=== PATIENT | female | born 1980 | race Caucasian/White ===

== ENCOUNTER 2017-02-08 16:39 | Emergency (ER) | payer MEDICARE, MEDICAID ==
--- NOTE | 2017-02-08 19:41 | C.PDOC ---
History Of Present Illness Patient presents to the ER with a complaint of generalized body aches, abdominal pain, and vomiting for the past 4 days after eating pizza. Patient is able to tolerate PO, denies fever or chills. Time Seen by Provider: 02/08/17 19:40 Chief Complaint (Nursing): Abdominal Pain History Per: Patient History/Exam Limitations: no limitations Onset/Duration Of Symptoms: Days Current Symptoms Are (Timing): Still Present Location Of Pain/Discomfort: Epigastric Radiation Of Pain To:: None Quality Of Discomfort: Unable To Describe Associated Symptoms: Vomiting. denies: Fever, Chills Exacerbating Factors: None Alleviating Factors: None Recent travel outside of the [place]: No Past Medical History Reviewed: Historical Data, Nursing Documentation, Vital Signs Vital Signs: Last Vital Signs Temp 98.4 F 02/08/17 21:43 Pulse 72 02/08/17 21:43 Resp 20 02/08/17 21:43 BP 123/85 02/08/17 21:43 Pulse Ox 98 02/08/17 21:45 - Medical History PMH: Fibromyalgia, Migraine Surgical History: Appendectomy, Cholecystectomy - [facility] Procedures INJECT/INFUSE NEC (09/06/12) VACCINATION NEC (08/11/12) Family History: States: No Known Family Hx - Social History Hx Alcohol Use: No Hx Substance Use: No - Immunization History Hx Tetanus Toxoid Vaccination: No Hx Influenza Vaccination: Yes Hx Pneumococcal Vaccination: No Review Of Systems Constitutional: Negative for: Fever, Chills Gastrointestinal: Positive for: Vomiting, Abdominal Pain Musculoskeletal: Positive for: Other (Generalized body aches) Physical Exam - Physical Exam Appears: Non-toxic Skin: Warm, Dry Head: Normacephalic Oral Mucosa: Moist Chest: Symmetrical, No Tenderness Cardiovascular: Rhythm Regular Respiratory: No Rales, No Rhonchi, No Wheezing Gastrointestinal/Abdominal: Soft, Tenderness (Mild mid epigastric), No Guarding , No Rebound Neurological/Psych: Oriented x3 ED Course And Treatment - Laboratory Results Result Diagrams: 02/08/17 21:10 02/08/17 21:10 O2 Sat by Pulse Oximetry: 98 (Room air) Pulse Ox Interpretation: Normal Progress Note: Blood work and urinalysis ordered. Reglan and IV fluids administered. Reevaluation Time: 22:14 Reassessment Condition: Improved Disposition Counseled Patient/Family Regarding: Studies Performed, Diagnosis, Need For Followup, Rx Given - Disposition Referrals: [facility] at [facility] [Outside] [facility] [Outside] Disposition: HOME/ ROUTINE Disposition Time: 19:41 Condition: FAIR Additional Instructions: Please return if symptoms recur Prescriptions: Metoclopramide [Reglan] 1 tab PO TID PRN #25 tab PRN Reason: Nausea/Vomiting Pantoprazole Sodium [Protonix] 20 mg PO DAILY #15 ect Instructions: Abdominal Pain (ED) Forms: [employer] (Italian) - Clinical Impression Clinical Impression: Abdominal pain - Scribe Statement The provider has reviewed the documentation as recorded by the Scribe Cade Mcgill All medical record entries made by the Zahiraibe were at my direction and personally dictated by me. I have reviewed the chart and agree that the record accurately reflects my personal performance of the history, physical exam, medical decision making, and the department course for this patient. I have also personally directed, reviewed, and agree with the discharge instructions and disposition.
[2017-02-08] MEDS ORDERED: Sodium Chloride 0.9% 1,000 ML IV ONE (20:17)
[2017-02-08] MEDS ORDERED: Sodium Chloride 0.9% 1,000 ML ONE (21:04)
[2017-02-08 21:14] LABS: BASO % 0.3 % (0.0-2.0); EOS % 0.4 % (0.0-4.0); LYMPH # 1.7 K/uL (1.0-4.3); LYMPH % 31.7 % (20.0-40.0); MEAN CELL VOLUME 88.7 fL (81.0-99.0); MEAN CORPUSCULAR HEMOGLOBIN 29.6 pg (27.0-31.0); MEAN CORPUSCULAR HGB CONC 33.4 g/dL (33.0-37.0); MEAN PLATELET VOLUME 7.9 fL (7.2-11.7); MONO # 0.3 K/uL (0.0-0.8); MONO % 4.9 % (0.0-10.0); NEUT # 3.4 K/uL (1.8-7.0); NEUT % 62.7 % (50.0-75.0); NRBC % 0.1 % (0.0-2.0); RBC 4.39 Mil/uL (3.80-5.20); RED CELL DISTRIBUTION WIDTH 14.2 % (11.5-14.5); WHITE BLOOD COUNT 5.4 K/uL (4.8-10.8)
[2017-02-08 21:21] LABS: HCG,QUALITATIVE URINE NEGATIVE (NEGATIVE)
[2017-02-08 21:24] LABS: SQUAMOUS EPITHIAL 17 /hpf (0-5); URINE BACTERIA RARE (<OCC); URINE BILIRUBIN NEGATIVE (NEGATIVE); URINE BLOOD NEGATIVE (NEGATIVE); URINE CALCIUM OXALATE CRYSTALS FEW /hpf (<OCC); URINE CLARITY Clear (Clear); URINE GLUCOSE (UA) NORMAL (Normal); URINE LEUKOCYTE ESTERASE NEG Leu/uL (Negative); URINE NITRATE NEGATIVE (NEGATIVE); URINE PROTEIN 1+ mg/dL (NEGATIVE); URINE UROBILINOGEN NORMAL mg/dL (0.2-1.0)
[2017-02-08 21:25] LABS: CALCIUM 8.6 mg/dl (8.6-10.4); GFR AFRICAN-AMERICAN > 60; GFR NON-AFRICAN AMERICAN > 60; INR 1.1; LIPASE 69 U/L (23-300)
[2017-02-08 21:26] LABS: ALBUMIN 4.2 g/dL (3.5-5.0); ALT/SGPT 22 U/L (9-52); AST/SGOT 33 U/L (14-36); BLOOD UREA NITROGEN 5 mg/dL (7-17)
[2017-02-08 21:35] LABS: URINE COLOR YELLOW (YELLOW)
[2017-02-08 21:44] VITALS: BP 123/85; PULSE 72; RESP 20; TEMP 98.4; O2SAT 98
== END 2017-02-08 22:20 | disposition home or self-care (01) ==
LOC: C.ER 16:39
DX: R10.13 Epigastric pain (principal)
CPT/HCPCS: 80053; 81001; 83690; 84703; 85025; 85610; 85730; 96361; 96374; 99285; J2765; J7040

== ENCOUNTER 2017-06-07 14:46 | Emergency (ER) | payer MEDICARE, MEDICAID ==
[2017-06-07 14:51] VITALS: BMI 25.8
[2017-06-07 14:52] VITALS: RESP 18; TEMP 98.1
[2017-06-07 16:09] VITALS: BP 120/74; PULSE 80; O2SAT 100
--- NOTE | 2017-06-07 16:51 | C.PDOC ---
History Of Present Illness 36 y/o female, with history of fibromyalgia and remote history of seizures, present to the ER for evaluation after she had a seizure. Patient states that she had a seizure with tonic-clonic activity which lasted for several minutes. Patient reports that she returned to her baseline. She notes that she has a mild headache. Denies having fever and other complaints. Of note, patient is AOX3. Time Seen by Provider: 06/07/17 15:39 Chief Complaint (Nursing): Seizure History Per: Patient History/Exam Limitations: no limitations Severity: Moderate Past Medical History Reviewed: Historical Data, Nursing Documentation, Vital Signs Vital Signs: Last Vital Signs Temp 98.1 F 06/07/17 16:08 Pulse 80 06/07/17 16:08 Resp 18 06/07/17 16:08 BP 120/74 06/07/17 16:08 Pulse Ox 100 06/07/17 16:55 - Medical History PMH: Anxiety, Depression, Fibromyalgia, Migraine, Seizures Surgical History: Appendectomy, Cholecystectomy - [facility] Procedures INJECT/INFUSE NEC (09/06/12) VACCINATION NEC (08/11/12) Family History: States: No Known Family Hx - Social History Hx Alcohol Use: No Hx Substance Use: No - Immunization History Hx Tetanus Toxoid Vaccination: No Hx Influenza Vaccination: Yes Hx Pneumococcal Vaccination: No Review Of Systems Except As Marked, All Systems Reviewed And Found Negative. Constitutional: Negative for: Fever, Chills Neurological: Positive for: Seizures Physical Exam - Physical Exam Appears: Non-toxic, No Acute Distress Skin: Normal Color, Warm, Dry Head: Atraumatic, Normacephalic Eye(s): bilateral: Normal Inspection Nose: Normal Oral Mucosa: Moist Neck: Supple Chest: Symmetrical Cardiovascular: Rhythm Regular Respiratory: Normal Breath Sounds, No Rales, No Rhonchi, No Wheezing Extremity: Other (abrasion to right hand) Neurological/Psych: Oriented x3, Normal Speech ED Course And Treatment O2 Sat by Pulse Oximetry: 100 (RA) Pulse Ox Interpretation: Normal Medical Decision Making Medical Decision Making: Progress: Patient refused to have work-up. Patient signed AMA. Disposition - Disposition Referrals: [facility] [Outside] [facility] [Outside] Ovidio Miles MD [Staff Provider] - Disposition: AGAINST MEDICAL ADVICE Disposition Time: 04:00 Condition: UNKNOWN Additional Instructions: follow up with specialist. return toe r with worsening symptoms or concerns Instructions: Seizures, Adult (DC), Leaving Against Medical Advice Forms: [employer] (Croatian) - Clinical Impression Clinical Impression: Seizure, Left against medical advice - Scribe Statement The provider has reviewed the documentation as recorded by the Scribe Kyle Pennington Provider Attestation: All medical record entries made by the Scribe were at my direction and personally dictated by me. I have reviewed the chart and agree that the record accurately reflects my personal performance of the history, physical exam, medical decision making, and the department course for this patient. I have also personally directed, reviewed, and agree with the discharge instructions and disposition.
== END 2017-06-07 16:13 | disposition left against medical advice (07) ==
LOC: C.ER 14:46
DX: G40.909 Epilepsy, unspecified, not intractable, without status epilepticus (principal)

== ENCOUNTER 2017-06-12 13:54 | Inpatient (IN) | payer MEDICARE, MEDICAID ==
[2017-06-12 13:54] VITALS: BMI 25.8
[2017-06-12] MEDS ORDERED: Sodium Chloride 0.9% 1,000 ML IV ONE (14:24)
--- NOTE | 2017-06-12 14:24 | C.PDOC ---
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 +WITNESSED TONIC CLONIC SZ. CURRENTLY CO [place]. NO TRAUMA. PS FIRST DX SZ 1 YR AGO, BUT NOW INCR FREQ SINCE 06/05. REFERRAL FOR NEURO IN [place] BUT REQUESTING ALT REFERRAL BC UNABLE TO GET TO [place]. EXAM MILD DIST NONTOXIC HEENT ATRAUM NEURO AO3, NO ACTIVE SZ, NO FOCAL DEF REMAINDER NEG MDM S/P CT 06/05. PT REFUSING REPEAT CT. PAIN RX, SZ RX, OBS Time Seen by Provider: 06/12/17 14:07 Chief Complaint (Nursing): Seizure History Per: Patient History/Exam Limitations: no limitations Past Medical History Reviewed: Historical Data, Nursing Documentation, Vital Signs Vital Signs: Last Vital Signs Temp 97.8 F 06/14/17 15:00 Pulse 80 06/14/17 15:00 Resp 18 06/14/17 15:00 BP 89/58 L 06/14/17 15:00 Pulse Ox 98 06/15/17 18:12 - Medical History PMH: Anxiety, Depression, Fibromyalgia, Migraine, Seizures Surgical History: Appendectomy, Cholecystectomy - [facility] Procedures INJECT/INFUSE NEC (09/06/12) VACCINATION NEC (08/11/12) Family History: States: No Known Family Hx - Social History Hx Alcohol Use: No Hx Substance Use: No - Immunization History Hx Tetanus Toxoid Vaccination: No Hx Influenza Vaccination: Yes Hx Pneumococcal Vaccination: No Review Of Systems Constitutional: Negative for: Fever Cardiovascular: Negative for: Chest Pain Respiratory: Negative for: Shortness of Breath Gastrointestinal: Negative for: Nausea, Vomiting Neurological: Positive for: Seizures, Headache. Negative for: Weakness, Numbness Physical Exam - Physical Exam Appears: Non-toxic, No Acute Distress Skin: Normal Color, Warm, Dry, No Rash Head: Normacephalic Eye(s): bilateral: PERRL Nose: Normal Oral Mucosa: Moist Lips: Normal Appearing Neck: Normal ROM Cardiovascular: Rhythm Regular, No Murmur Respiratory: Normal Breath Sounds, No Accessory Muscle Use Extremity: Normal ROM, No Deformity, No Swelling Neurological/Psych: Oriented x3, Other (AO3, NO ACTIVE SZ, NO FOCAL DEF) ED Course And Treatment - Laboratory Results Result Diagrams: 06/14/17 12:01 06/14/17 12:01 O2 Sat by Pulse Oximetry: 98 (RA) Pulse Ox Interpretation: Normal Progress - Re-Evaluation Re-evaluation Note: 06/12/17 14:27 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 WILL CONSULT PT AGREES W PLAN 06/12/17 15:08 D/W DR NOGUEIRA WILL ADMIT - Data Reviewed Data Reviewed: Lab, Old records Medical Decision Making Medical Decision Making: S/P CT 06/05. PT REFUSING REPEAT CT. PAIN RX, SZ RX, OBS Disposition Counseled Patient/Family Regarding: Studies Performed, Diagnosis - Disposition Disposition: HOSPITALIZED Disposition Time: 15:09 Condition: STABLE - POA Present On Arrival: None - Clinical Impression Clinical Impression: Breakthrough seizure - Scribe Statement The provider has reviewed the documentation as recorded by the Scribe (Darshana Santos) All medical record entries made by the Scribe were at my direction and personally dictated by me. I have reviewed the chart and agree that the record accurately reflects my personal performance of the history, physical exam, medical decision making, and the department course for this patient. I have also personally directed, reviewed, and agree with the discharge instructions and disposition. Decision To Admit - Pt Status Changed To: Hospital Disposition Of: Inpatient - Admit Certification Admit to Inpatient:: After my assessment, the patient will require hospitalization for at least two midnights. This is because of the severity of symptoms shown, intensity of services needed, and/or the medical risk in this patient being treated as an outpatient. - InPatient: Physician Admission Certification: I certify that this patient requires 2 or more midnights of care for the following reason:: SEE NOTE - . Bed Request Type: Telemetry Admitting Physician: Milton Nogueira Patient Diagnosis: Breakthrough seizure
[2017-06-12] MEDS ORDERED: levETIRAcetam 1,000 MG in Sodium Chloride 0.9% 200 ML IVPB STA (14:29)
[2017-06-12 14:51] LABS: BASO % 0.5 % (0.0-2.0); EOS # 0.1 K/uL (0.0-0.7); EOS % 2.2 % (0.0-4.0); HEMOGLOBIN 10.5 g/dL (11.0-16.0); LYMPH # 1.5 K/uL (1.0-4.3); LYMPH % 33.8 % (20.0-40.0); MEAN CELL VOLUME 91.9 fL (81.0-99.0); MEAN CORPUSCULAR HEMOGLOBIN 31.1 pg (27.0-31.0); MEAN CORPUSCULAR HGB CONC 33.9 g/dL (33.0-37.0); MEAN PLATELET VOLUME 8.5 fL (7.2-11.7); MONO # 0.3 K/uL (0.0-0.8); MONO % 6.5 % (0.0-10.0); NEUT # 2.6 K/uL (1.8-7.0); PLATELET COUNT 179 K/uL (130-400); RBC 3.38 Mil/uL (3.80-5.20); RED CELL DISTRIBUTION WIDTH 13.5 % (11.5-14.5); WHITE BLOOD COUNT 4.5 K/uL (4.8-10.8)
[2017-06-12] MEDS ORDERED: levETIRAcetam 1,000 MG in Sodium Chloride 0.9% 100 ML IVPB STA (15:03)
[2017-06-12 15:10] LABS: ALBUMIN 3.5 g/dL (3.5-5.0); ALT/SGPT 14 U/L (9-52); AST/SGOT 19 U/L (14-36); BLOOD UREA NITROGEN 5 mg/dL (7-17); CALCIUM 8.2 mg/dl (8.6-10.4); GFR AFRICAN-AMERICAN > 60; GFR NON-AFRICAN AMERICAN > 60
[2017-06-12 16:00] LABS: BARBITURATES, UR NEGATIVE (NEGATIVE); BENZODIAZEPINES, UR NEGATIVE (NEGATIVE); OPIATES, UR NEGATIVE (NEGATIVE); PHENCYCLIDINE, UR NEGATIVE (NEGATIVE)
--- NOTE | 2017-06-12 17:01 | CP.PCM.HP ---
History of Present Illness - History of Present Illness History of Present Illness: CC: seizure HPI: Patient is a 36 year old female who moved from [place] one month ago and who has an extensive medical history of Lupus (diagnosed in 1998), Fibromyalgia (2006), PE b/l (2009), Migraines, Antiphospholipid syndrome (2010), seizures, pericarditis who presents today after having a seizure. Patient says she had a seizure one year ago, but her mother thought it was more of a fainting spell. Patient was admitted to the hospital and had an EEG which she said was normal and was discharged without any seizure medications. Patient has had no seizure activity since until this past week. Patient had a seizure on Tuesday and hit her face on the ground. Seizure lasted about 10-15 minutes according to her . Patient came to the ED and left AMA (even though she states she was discharged). The same night patient had another seizure which last 4-5 minutes. During both seizures patient bit her tongue and had shaking throughout her body. Today patient said she was feeling dizzy and [facility] Her stepped away to get her some food and when he came back she started to seize. The seizure lasted about 4 minutes after which she was confused for about 10 minutes. Patient did not fall during this episode. Patient has never been incontinent of stool or urine during an episode Full Code PMD: Dr. Martin Pugh Allergies: anaphylaxis to : Penicillin, NSAIDs, Topamax, Toradol, Tramadol, Zofran, Vanco PMHx: Lupus (diagnosed in 1998), Fibromyalgia (2006), PE (2009), Migraines, Antiphospholipid syndrome (2010), seizures, pericarditis Psurg: L renal biopsy 1998- showing lupus nephritis, cholecystectomy 2006, total R hip replacement 2001, total L hip replacement 2015, r breast lumpectomy 2003, appendectomy 2014, r shoulder arthroscopy 2011, L underarm lymph node removed, c section 2004, uterine ablation 2013, tubal ligation Famhx: Dad: RA, Paternal Grandmother: [place] at 85, Maternal Grandmother: breast [place] 81, Uncle: prostate [place], Cousin: [place] at 35, Grandfather: stroke at 70 Social: smoked 1/2 pack of cigarettes for about 10 years, stopped in 2009, no alcohol, smokes 1 blunt of marijuana everyday since age 13 Home meds: Amitryptiline 150mg BID, Fioricet daily, Gabapentin 800mg am, 1600mg pm, Midodrine 5mg q3h, Hydroxychlor 200mg BID, Tizanidine 4mg TID Present on Admission - Present on Admission Any Indicators Present on Admission: Yes History of DVT/PE: Yes History of Uncontrolled Diabetes: No Urinary Catheter: No Decubitus Ulcer Present: No Review of Systems - Constitutional Constitutional: Fatigue, Lethargy. absent: Chills, Fever - EENT Eyes: Blurred Vision (left eye vision worse than right eye for past year with double vision) Nose/Mouth/Throat: absent: Sore Throat, Neck Pain - Cardiovascular Cardiovascular: absent: Chest Pain, Dyspnea, Dyspnea on Exertion, Edema, Lightheadedness, Syncope - Respiratory Respiratory: absent: Cough, Wheezing, Stridor - Gastrointestinal Gastrointestinal: absent: Constipation, Diarrhea, Nausea, Vomiting Additional comments: no incontinence of stools - Genitourinary Genitourinary: absent: Change in Urinary Stream, Difficulty Urinating, Dysuria Additional comments: no incontinence of urine - Musculoskeletal Musculoskeletal: Myalgias. absent: Numbness, Tingling - Integumentary Integumentary: absent: Rash - Neurological Neurological: Convulsions. absent: Numbness, Focal Weakness, Tingling Past Patient History - Infectious Disease Hx of Infectious Diseases: None - Past Medical History & Family History Past Medical History?: Yes - Past Social History Smoking Status: Never Smoked - CARDIAC Hx Cardiac Disorders: Yes Other/Comment: Pericarditis - PULMONARY Hx Respiratory Disorders: No - NEUROLOGICAL Hx Neurological Disorder: Yes Hx Dizziness: Yes Hx Migraine: Yes Hx Seizures: Yes (1 year) Hx Vertigo: Yes - HEENT Hx HEENT Problems: No - RENAL Hx Chronic Kidney Disease: No - ENDOCRINE/METABOLIC Hx Endocrine Disorders: Yes Hx Systemic Lupus Erythematosus: Yes - HEMATOLOGICAL/ONCOLOGICAL Hx Blood Disorders: Yes Hx Bruising: Yes (Legs) - INTEGUMENTARY Hx Dermatological Problems: Yes Other/Comment: "Lupus rash" generalized - MUSCULOSKELETAL/RHEUMATOLOGICAL Hx Musculoskeletal Disorders: Yes Hx Degenerative Joint Disease: Yes (B/L hips) Hx Falls: No Hx Fractures: Yes (Right wrist) - GASTROINTESTINAL Hx Gastrointestinal Disorders: Yes Hx Nausea: Yes - GENITOURINARY/GYNECOLOGICAL Hx Genitourinary Disorders: No - PSYCHIATRIC Hx Psychophysiologic Disorder: Yes Hx Anxiety: Yes Hx Depression: Yes Hx Substance Use: No - SURGICAL HISTORY Hx Surgeries: Yes Hx Appendectomy: Yes Hx Section: Yes (x1) Hx Cholecystectomy: Yes Hx Musculoskeletal Surgery: Yes (B/L hip replacement) Hx Tubal Ligation: Yes - ANESTHESIA Hx Anesthesia: Yes Hx Anesthesia Reactions: No Hx Malignant Hyperthermia: No Has any member of the family had a problem w/ anesthesia?: No Meds Allergies/Adverse Reactions: Allergies Allergy/AdvReac Type Severity Reaction Status Date / Time ketorolac [From Toradol] Allergy Verified 06/07/17 14:50 lamotrigine [From Lamictal] Allergy Verified 06/07/17 14:50 NSAIDS (Non-Steroidal Allergy Verified 06/07/17 14:50 Anti-Inflamma ondansetron Allergy Verified 06/07/17 14:50 [From Zofran (as hydrochloride)] Penicillins Allergy Verified 06/07/17 14:50 sumatriptan [From Imitrex] Allergy Verified 06/07/17 14:50 topiramate [From Topamax] Allergy Verified 06/07/17 14:50 tramadol Allergy Verified 06/07/17 14:50 vancomycin Allergy Verified 06/07/17 14:50 Physical Exam - Constitutional Appears: Non-toxic, No Acute Distress - Head Exam Head Exam: ATRAUMATIC, NORMAL INSPECTION, NORMOCEPHALIC - Eye Exam Eye Exam: EOMI, Normal appearance - ENT Exam ENT Exam: Mucous Membranes Moist - Neck Exam Neck exam: Positive for: Thyromegaly. Negative for: Tenderness - Respiratory Exam Respiratory Exam: Clear to Auscultation Bilateral, NORMAL BREATHING PATTERN. absent: Rales, Rhonchi, Wheezes, Respiratory Distress, Stridor - Cardiovascular Exam Cardiovascular Exam: REGULAR RHYTHM, RRR, +S1, +S2 Additional comments: left chest portacath - GI/Abdominal Exam GI & Abdominal Exam: Normal Bowel Sounds, Soft. absent: Tenderness - Extremities Exam Extremities exam: Positive for: full ROM, normal inspection. Negative for: pedal edema, tenderness Results - Vital Signs Recent Vital Signs: Last Vital Signs Temp 97.9 F 06/12/17 13:58 Pulse 89 06/12/17 16:20 Resp 18 06/12/17 16:20 BP 115/75 06/12/17 16:20 Pulse Ox 100 06/12/17 16:20 - Labs Result Diagrams: 06/12/17 14:45 06/12/17 14:45 Labs: Laboratory Results - last 24 hr 06/12/17 06/12/17 06/12/17 14:45 14:45 15:30 WBC 4.5 L RBC 3.38 L Hgb 10.5 L Hct 31.1 L MCV 91.9 MCH 31.1 H MCHC 33.9 RDW 13.5 Plt Count 179 MPV 8.5 Neut % (Auto) 57.0 Lymph % (Auto) 33.8 Preble % (Auto) 6.5 Eos % (Auto) 2.2 Baso % (Auto) 0.5 Neut # (Auto) 2.6 Lymph # (Auto) 1.5 Preble # (Auto) 0.3 Eos # (Auto) 0.1 Baso # (Auto) 0.0 Sodium 142 Potassium 4.2 Chloride 104 Carbon Dioxide 28 Anion Gap 14 BUN 5 L Creatinine 0.7 Est GFR ( Amer) > 60 Est GFR (Non-Af Amer) > 60 Random Glucose 73 Calcium 8.2 L Total Bilirubin 0.2 AST 19 ALT 14 Alkaline Phosphatase 74 Total Protein 7.0 Albumin 3.5 Globulin 3.5 Albumin/Globulin Ratio 1.0 Beta HCG, Quant < 2.39 Urine Opiates Screen Negative Urine Methadone Screen Negative Ur Barbiturates Screen Negative Ur Phencyclidine Scrn Negative Ur Amphetamines Screen Negative U Benzodiazepines Scrn Negative U Oth Cocaine Metabols Negative U Cannabinoids Screen Positive H Assessment & Plan - Assessment and Plan (Free Text) Assessment: Seizure- generalized tonic clonic Admit to tele for 24 hours Keppra 1000 mg loading dose in ED Keppra 750mg po BID MRI brain without contrast EEG f/u [facility] Dr. 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 iron studies, vit b12, folate peripheral blood smear vit b12, folate Prophylaxis DVT risk score 3- hx PE Heparin 5000u sc q8h SCDs no gi prophylaxis indicated heart healthy low carb diet
--- NOTE | 2017-06-12 17:26 | CP.PCM.CON ---
History of Present Illness - History of Present Illness History of Present Illness: Patient is a 36 year old female who moved from [place] one month ago and who has an extensive medical history of Lupus (diagnosed in 1998), Fibromyalgia (2006), PE b/l (2009), Migraines, Antiphospholipid syndrome (2010) , seizures, pericarditis who presents today after having a seizure. Patient says she had a seizure one year ago, but her mother thought it was more of a fainting spell. Patient was admitted to the hospital and had an EEG which she said was normal and was discharged without any seizure medications. Patient has had no seizure activity since until this past week. Patient had a seizure on Tuesday and hit her face on the ground. Seizure lasted about 10-15 minutes according to her . Patient came to the ED and left AMA (even though she states she was discharged). The same night patient had another seizure which last 4-5 minutes. During both seizures patient bit her tongue and had shaking throughout her body. 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 Her stepped away to get her some food and when he came back she started to seize. The seizure lasted about 4 minutes after which she was confused for about 10 minutes. Patient did not fall during this episode. PMD: Dr. Martin Pugh Allergies: anaphylaxis to : Penicillin, NSAIDs, Topamax, Toradol, Tramadol, Zofran, Vanco PMHx: Lupus (diagnosed in 1998), Fibromyalgia (2006), PE (2009), Migraines, Antiphospholipid syndrome (2010), seizures, pericarditis Psurg: L renal biopsy 1998- showing lupus nephritis, cholecystectomy 2006, total R hip replacement 2001, total L hip replacement 2015, r breast lumpectomy 2003, appendectomy 2014, r shoulder arthroscopy 2011, L underarm lymph node removed, c section 2004, uterine ablation 2013, tubal ligation Famhx: Dad: RA, Paternal Grandmother: [place] at 85, Maternal Grandmother: breast CA 81, Uncle: prostate CA, Cousin: [place] at 35, Grandfather: stroke at 70 Social: smoked 1/2 pack of cigarettes for about 10 years, stopped in 2009, no alcohol, smokes 1 blunt of marijuana everyday since age 13 Home meds: Amitryptiline 150mg BID, Fioricet daily, Past Patient History - Infectious Disease Hx of Infectious Diseases: None - Past Medical History & Family History Past Medical History?: Yes - Past Social History Smoking Status: Never Smoked - CARDIAC Hx Cardiac Disorders: Yes Other/Comment: Pericarditis - PULMONARY Hx Respiratory Disorders: No - NEUROLOGICAL Hx Neurological Disorder: Yes Hx Dizziness: Yes Hx Migraine: Yes Hx Seizures: Yes (1 year) Hx Vertigo: Yes - HEENT Hx HEENT Problems: No - RENAL Hx Chronic Kidney Disease: No - ENDOCRINE/METABOLIC Hx Endocrine Disorders: Yes Hx Systemic Lupus Erythematosus: Yes - HEMATOLOGICAL/ONCOLOGICAL Hx Blood Disorders: Yes Hx Bruising: Yes (Legs) - INTEGUMENTARY Hx Dermatological Problems: Yes Other/Comment: "Lupus rash" generalized - MUSCULOSKELETAL/RHEUMATOLOGICAL Hx Musculoskeletal Disorders: Yes Hx Degenerative Joint Disease: Yes (B/L hips) Hx Falls: No Hx Fractures: Yes (Right wrist) - GASTROINTESTINAL Hx Gastrointestinal Disorders: Yes Hx Nausea: Yes - GENITOURINARY/GYNECOLOGICAL Hx Genitourinary Disorders: No - PSYCHIATRIC Hx Psychophysiologic Disorder: Yes Hx Anxiety: Yes Hx Depression: Yes Hx Substance Use: No - SURGICAL HISTORY Hx Surgeries: Yes Hx Appendectomy: Yes Hx Section: Yes (x1) Hx Cholecystectomy: Yes Hx Musculoskeletal Surgery: Yes (B/L hip replacement) Hx Tubal Ligation: Yes - ANESTHESIA Hx Anesthesia: Yes Hx Anesthesia Reactions: No Hx Malignant Hyperthermia: No Has any member of the family had a problem w/ anesthesia?: No Meds Allergies/Adverse Reactions: Allergies Allergy/AdvReac Type Severity Reaction Status Date / Time ketorolac [From Toradol] Allergy Verified 06/07/17 14:50 lamotrigine [From Lamictal] Allergy Verified 06/07/17 14:50 NSAIDS (Non-Steroidal Allergy Verified 06/07/17 14:50 Anti-Inflamma ondansetron Allergy Verified 06/07/17 14:50 [From Zofran (as hydrochloride)] Penicillins Allergy Verified 06/07/17 14:50 sumatriptan [From Imitrex] Allergy Verified 06/07/17 14:50 topiramate [From Topamax] Allergy Verified 06/07/17 14:50 tramadol Allergy Verified 06/07/17 14:50 vancomycin Allergy Verified 06/07/17 14:50 Results - Vital Signs Recent Vital Signs: Last Vital Signs Temp 97.4 F L 05/06/18 16:20 Pulse 89 06/12/17 16:20 Resp 18 06/12/17 16:20 BP 115/75 06/12/17 16:20 Pulse Ox 100 06/12/17 16:20 - Labs Result Diagrams: 06/12/17 14:45 06/12/17 14:45 Labs: Laboratory Results - last 24 hr 06/12/17 06/12/17 06/12/17 14:45 14:45 15:30 WBC 4.5 L RBC 3.38 L Hgb 10.5 L Hct 31.1 L MCV 91.9 MCH 31.1 H MCHC 33.9 RDW 13.5 Plt Count 179 MPV 8.5 Neut % (Auto) 57.0 Lymph % (Auto) 33.8 [place] % (Auto) 6.5 Eos % (Auto) 2.2 Baso % (Auto) 0.5 Neut # (Auto) 2.6 Lymph # (Auto) 1.5 [place] # (Auto) 0.3 Eos # (Auto) 0.1 Baso # (Auto) 0.0 Sodium 142 Potassium 4.2 Chloride 104 Carbon Dioxide 28 Anion Gap 14 BUN 5 L Creatinine 0.7 Est GFR ( Amer) > 60 Est GFR (Non-Af Amer) > 60 Random Glucose 73 Calcium 8.2 L Total Bilirubin 0.2 AST 19 ALT 14 Alkaline Phosphatase 74 Total Protein 7.0 Albumin 3.5 Globulin 3.5 Albumin/Globulin Ratio 1.0 Beta HCG, Quant < 2.39 Urine Opiates Screen Negative Urine Methadone Screen Negative Ur Barbiturates Screen Negative Ur Phencyclidine Scrn Negative Ur Amphetamines Screen Negative U Benzodiazepines Scrn Negative U Oth Cocaine Metabols Negative U Cannabinoids Screen Positive H Assessment & Plan - Assessment and Plan (Free Text) Assessment: 36 yr old woman with 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 I would recommmend she be started on Keppra 1000 mg IV now and 500 mg IV bid, and eeg in the am. In addition, she needs an MRI Brain with contrast, epilepsy protocol. Thank you Dr. Greco
[2017-06-12] MEDS ORDERED: Apap-Butalbital-Caffeine 325-50-40mg Tab PO PRN (21:13)
[2017-06-12 21:55] LABS: EOSINOPHIL 3 % (0-4); LYMPHOCYTE 27 % (20-40); MONOCYTE 9 % (0-10); NEUTROPHIL 61 % (50-75); PLATELET ESTIMATE NORMAL (NORMAL); TOTAL CELLS COUNTED 100
[2017-06-12 21:56] LABS: ANISOCYTOSIS SLIGHT
[2017-06-13] MEDS ORDERED: DiphenhydrAMINE 50 mg/ml Inj IVP STA (01:45)
[2017-06-13] MEDS ORDERED: Valproate 500 MG in Sodium Chloride 0.9% 100 ML IVPB ONE (06:31)
--- NOTE | 2017-06-13 06:38 | CP.PCM.PN ---
Subjective - Date & Time of Evaluation Date of Evaluation: 06/13/17 Time of Evaluation: 06:32 - Subjective Subjective: Ms. Pham was seen and examined at the bedside. She is alert, oriented and complaining of frontal headache, pain scale 8/10, non radiating, feels like she is floating and with mild lightheadedness. She further states of receiving benadryl iv and fioricet two hours ago and requesting for more medications especially IV benadryl. She also state of being allergic to steroid which makes her bilateral groin area itchy. She further state of history of seizure in the past couple of months, had EEG which came back normal. She also claims of experiencing lightheadedness prior to each episode of seizure with tongue bitting. There is no hematoma or bruise noted in her tongue.Explained to the patient that,taking benadryl too close from previous dose will cause more problem such as feeling more lightheaded. She claims of benadryl has been helping her in the past.She is able to follow simple commands. Objective - Vital Signs/Intake and Output Vital Signs (last 24 hours): Temp Pulse Resp BP Pulse Ox 97.6 F 89 20 103/69 100 06/12/17 23:05 06/12/17 23:05 06/12/17 23:05 06/12/17 23:05 06/12/17 23:05 - Medications Medications: Current Medications Acetaminophen/Butalbital/Caffeine (Fioricet) 1 tab PO DAILY PRN PRN Reason: Headache Last Admin: 06/13/17 00:31 Dose: 1 tab Amitriptyline HCl (Elavil) 150 mg PO BID JJ Gabapentin (Neurontin) 800 mg PO Q24H JJ Gabapentin (Neurontin) 1,800 mg PO HS JJ Last Admin: 06/12/17 21:28 Dose: 1,800 mg Heparin Sodium (Porcine) (Heparin) 5,000 units SC Q8 JJ Last Admin: 06/12/17 21:28 Dose: 5,000 units Hydroxychloroquine Sulfate (Plaquenil) 200 mg PO BID JJ PRN Reason: Protocol Magnesium Sulfate/Dextrose (Magnesium Sulfate 1 Gm/100 Ml D5w) 1 gm in 100 mls @ 300 mls/hr IVPB Q30M [facility] Stop: 06/13/17 07:19 Valproate Sodium 500 mg/ (Sodium Chloride) 105 mls @ 0 mls/hr IVPB ONCE ONE PRN Reason: Per Protocol Stop: 06/13/17 06:32 Levetiracetam (Keppra) 750 mg PO BID JJ Lorazepam (Ativan) 2 mg IVP ONCE PRN PRN Reason: Seizure activity Midodrine (Proamatine) 5 mg PO TID JJ - Labs Labs: 06/12/17 14:45 06/12/17 14:45 - Constitutional Appears: No Acute Distress - Head Exam Head Exam: NORMAL INSPECTION - Neurological Exam Neurological Exam: Alert, Awake, Oriented x3 Neuro motor strength exam: Left Upper Extremity: 5, Right Upper Extremity: 5, Left Lower Extremity: 5, Right Lower Extremity: 5 Additional comments: alert, oriented, follows simple commands. Assessment and Plan (1) Seizure Assessment & Plan: Case discussed with Dr. Johnson, continue all current medical regimen. Pending EEG and MRI of the Brain. If patient request for more pain medications and benadryl, recommend psychiatry consult. Status: Acute (2) Headache Assessment & Plan: Case discussed with Dr. Johnson, recommend Magnesium Sulfate 2 gms IVPB for one dose and depacote 500 mg IVPB for one dose. Decadron is also recommended but patient claims of being allergic to decadron. Status: Acute
[2017-06-13] MEDS: Magnesium Sulfate 1 gm in D5W 1 GM/100 ML BAG IVPB SCH ×2 (06:59→08:04)
[2017-06-13 07:32] LABS: BASO % 0.4 % (0.0-2.0); EOS # 0.2 K/uL (0.0-0.7); EOS % 3.8 % (0.0-4.0); HEMOGLOBIN 9.9 g/dL (11.0-16.0); LYMPH % 51.3 % (20.0-40.0); MEAN CELL VOLUME 92.5 fL (81.0-99.0); MEAN CORPUSCULAR HEMOGLOBIN 31.2 pg (27.0-31.0); MEAN CORPUSCULAR HGB CONC 33.8 g/dL (33.0-37.0); MEAN PLATELET VOLUME 8.5 fL (7.2-11.7); MONO # 0.3 K/uL (0.0-0.8); MONO % 6.7 % (0.0-10.0); NEUT # 1.5 K/uL (1.8-7.0); NEUT % 37.8 % (50.0-75.0); NRBC % 0.1 % (0.0-2.0); RBC 3.17 Mil/uL (3.80-5.20); RED CELL DISTRIBUTION WIDTH 13.4 % (11.5-14.5)
[2017-06-13 07:59] LABS: IRON 38 ug/dL (37-170)
[2017-06-13 08:05] LABS: ALB/GLOB RATIO 0.9 (1.0-2.1); ALBUMIN 2.9 g/dL (3.5-5.0); ALT/SGPT 12 U/L (9-52); AST/SGOT 21 U/L (14-36); BLOOD UREA NITROGEN 5 mg/dL (7-17); CALCIUM 7.9 mg/dl (8.6-10.4); GFR AFRICAN-AMERICAN > 60; GFR NON-AFRICAN AMERICAN > 60
[2017-06-13 08:21] LABS: % IRON SATURATION 15 (20-55); TOTAL IRON BINDING CAPACITY 247 ug/dL (250-450)
--- NOTE | 2017-06-13 09:14 | CP.PCM.PN ---
<Shira Cabrera - Last Filed: 06/13/17 13:49> Subjective - Date & Time of Evaluation Date of Evaluation: 06/13/17 Time of Evaluation: 07:00 - Subjective Subjective: PGY1- Progress Note Patient seen and examined at bedside and in no acute distress. Patient does not remember talking to me yesterday when she was admitted. I explain to her that I saw her in the ED and came up with her and her when the came to the floor, but she says she does not remember. Patient is watching TV and says she has a right sided headache behind her eye which she rates 9/10. Patient feels like she is "floating." Patient says the only thing that helps her headache is the IV benadryl. Patient says she has had no more seizure activity. Patient denies any weakness, numbness, chest pain, nausea, vomiting, abdominal pain, diarrhea, or constipation. At 11:38 Rapid response called for seizure activity which lasted a few minutes. Patient had no postictal period. Please see FRAME [employer]ISHER progress note. Objective - Vital Signs/Intake and Output Vital Signs (last 24 hours): Temp Pulse Resp BP Pulse Ox 98.1 F 72 20 105/79 100 06/13/17 07:52 06/13/17 07:52 06/13/17 07:52 06/13/17 07:52 06/13/17 07:52 - Medications Medications: Current Medications Acetaminophen/Butalbital/Caffeine (Fioricet) 1 tab PO DAILY PRN PRN Reason: Headache Last Admin: 06/13/17 00:31 Dose: 1 tab Amitriptyline HCl (Elavil) 150 mg PO BID JJ Gabapentin (Neurontin) 800 mg PO Q24H JJ Last Admin: 06/13/17 08:14 Dose: 800 mg Gabapentin (Neurontin) 1,800 mg PO HS JJ Last Admin: 06/12/17 21:28 Dose: 1,800 mg Heparin Sodium (Porcine) (Heparin) 5,000 units SC Q8 [facility] Last Admin: 06/13/17 06:58 Dose: 5,000 units Hydroxychloroquine Sulfate (Plaquenil) 200 mg PO BID JJ PRN Reason: Protocol Levetiracetam (Keppra) 750 mg PO BID JJ Lorazepam (Ativan) 2 mg IVP ONCE PRN PRN Reason: Seizure activity Midodrine (Proamatine) 5 mg PO TID JJ - Labs Labs: 06/13/17 06:58 06/13/17 06:58 - Additional Findings Additional findings: - Constitutional Appears: Non-toxic, No Acute Distress - Head Exam Head Exam: ATRAUMATIC, NORMAL INSPECTION, NORMOCEPHALIC - Eye Exam Eye Exam: EOMI, Normal appearance - ENT Exam ENT Exam: Mucous Membranes Moist - Neck Exam Neck exam: Positive for: Thyromegaly. Negative for: Tenderness - Respiratory Exam Respiratory Exam: Clear to Auscultation Bilateral, NORMAL BREATHING PATTERN. absent: Rales, Rhonchi, Wheezes, Respiratory Distress, Stridor - Cardiovascular Exam Cardiovascular Exam: REGULAR RHYTHM, RRR, +S1, +S2 Additional comments: left chest portacath - GI/Abdominal Exam GI & Abdominal Exam: Normal Bowel Sounds, Soft. absent: Tenderness - Extremities Exam Extremities exam: Positive for: full ROM, normal inspection. Negative for: pedal edema, tenderness Assessment and Plan - Assessment and Plan (Free Text) Assessment: Seizure- generalized tonic clonic Admit to tele for 24 hours Keppra 1000 mg loading dose in ED Keppra 750mg po BID MRI brain without contrast EEG CPK:33 procal: <.05 Dr. 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 Johnson patient given Mag Sulfate 2gms and Depakote 500mg IVPB today 06/13/17 Amitryptiline 150mg po BID Fioricet daily PRN f/u MRA head and neck Anxiety and Depression Amitryptiline 150mg po BID Decreased L eye vision f/u with ophtho as an outpatient Hypotension Midodrine 5mg po q8h Nontender B/L Thyromegaly thyroid U/S TSH: .89 Free T4: .62 Fibromyalgia Gabapentin 800mg po in AM and 1600mg po PM Anemia most likely anemia of chronic disease iron 38 tibc low, %sat low, ferritin wnl vit b12: 264 folate: 5.2 peripheral blood smear Prophylaxis DVT risk score 3- hx PE Heparin 5000u sc q8h SCDs no gi prophylaxis indicated heart healthy low carb diet <Gregorio Lambert - Last Filed: 06/13/17 14:15> Objective - Vital Signs/Intake and Output Vital Signs (last 24 hours): Temp Pulse Resp BP Pulse Ox 98.3 F 111 H 18 97/61 L 100 06/13/17 11:45 06/13/17 11:45 06/13/17 11:45 06/13/17 11:45 06/13/17 07:52 - Medications Medications: Current Medications Acetaminophen/Butalbital/Caffeine (Fioricet) 1 tab PO DAILY PRN PRN Reason: Headache Last Admin: 06/13/17 00:31 Dose: 1 tab Amitriptyline HCl (Elavil) 150 mg PO BID [facility] Last Admin: 06/13/17 09:57 Dose: 150 mg Gabapentin (Neurontin) 800 mg PO Q24H [facility] Last Admin: 06/13/17 08:14 Dose: 800 mg Gabapentin (Neurontin) 1,800 mg PO HS [facility] Last Admin: 06/12/17 21:28 Dose: 1,800 mg Heparin Sodium (Porcine) (Heparin) 5,000 units SC Q8 [facility] Last Admin: 06/13/17 06:58 Dose: 5,000 units Hydroxychloroquine Sulfate (Plaquenil) 200 mg PO BID JJ PRN Reason: Protocol Last Admin: 06/13/17 09:56 Dose: 200 mg Levetiracetam (Keppra) 750 mg PO BID [facility] Last Admin: 06/13/17 09:56 Dose: 750 mg Lorazepam (Ativan) 2 mg IVP ONCE PRN PRN Reason: Seizure activity Last Admin: 06/13/17 11:45 Dose: 2 mg Midodrine (Proamatine) 5 mg PO TID [facility] Last Admin: 06/13/17 09:57 Dose: 5 mg - Labs Labs: 06/13/17 06:58 06/13/17 06:58 Attending/Attestation - Attestation I have personally seen and examined this patient.: Yes I have fully participated in the care of the patient.: Yes I have reviewed all pertinent clinical information, including history, physical exam and plan: Yes Notes (Text): Patient was seen and examined. Patient was seen and this monring and later this afternoon during [employer] She has history of Lupus (diagnosed in 1998), Fibromyalgia (2006), PE (2009), Migraines, Antiphospholipid syndrome (2010), seizures, pericarditis L renal biopsy 1998- showing lupus nephritis, cholecystectomy 2006, total R hip replacement 2001, total L hip replacement 2015, r breast lumpectomy 2003, appendectomy 2014, r shoulder arthroscopy 2011, L underarm lymph node removed, c section 2004, uterine ablation 2013 and tubal ligation is here for evaluation of seizure. Patient was requesting for Ativan and IV benadryl. Note with drug seeking behavior. S/P [employer] for possible seizure. as per witnessed RN she was note shaking her body sitting on the chair. Immediately after she started talking clearly. Patient was also telling that she has headache and requestion go IV benadryl after IV ativan. We will follow MRI and EEG. Neuro recommendation appreciated. Do Procalcitonin psychiatry consult. avoid sedatives. D/W the resident I agree with the documentation of the resident's assessment and the plan
[2017-06-13 09:17] LABS: FOLATE 5.2 ng/mL
--- NOTE | 2017-06-13 11:59 | PCM.RRT ---
<Shira Cabrera - Last Filed: 06/13/17 11:51> [employer] TE[employer]ER Nurses Assessment - Situation Date: 06/13/17 Time [employer] PLANNING TEACHER was called: 11:38 CITY PLANNING TEACHER Responder Arrival Time:: 11:40 CITY PLANNING TEACHER Location:: T Med/Surg [employer] Reason for Call: Change in Mental Status (seizure activity ) [employer] PLANNING TEACHER Called By: RN - IV IV Inserted during CITY PLANNING TEACHER?: No - Respiratory [employer]ANNING TEACHER Delivery Method: Room Air - Stat Labs Ordered [employer]ANNING TEACHER Other Labs Ordered: prolactin and CPK - Recommendations 5) [employer] PLANNING TEACHER Level of Care Recommendations: Remain in current setting I.Reason for CITY PLANNING TEACHER - A) Acute Change in Patient: (Select all that apply): Acute change in mental status - Neurological Status (Select all that apply): Alert, Responsive, Oriented - Respiratory Oxygen Delivery Method: Room Air - Constitutional Appears: Non-toxic, No Acute Distress - Head Head Exam: ATRAUMATIC, NORMAL INSPECTION, NORMOCEPHALIC - Eyes Eye Exam: EOMI, Normal appearance - Respiratory Exam Respiratory Exam: Clear to Ausculation Bilateral, NORMAL BREATHING PATTERN - Cardiovascular Exam Cardiovascular Exam: Tachycardia, REGULAR RHYTHM, +S1, +S2 - GI/Abdominal Exam GI & Abdominal Exam: Soft, Normal Bowel Sounds. absent: Tenderness - Neurological Exam Neurological Exam: Alert, Awake, Oriented x3 - Extremities Exam Extremities Exam: Normal Inspection Plan - Assessment of Findings&Treatment Plan [employer] PLANNING TEACHER called for seizure activity. Patient was sitting in chair next to and said she didn't feel good and then started to shake. As per patient was shaking for about 3 minutes. She did not bite her tongue or lose bladder or bowel control. Nurse saw patient seated upright in chair and shaking for <1 min. Then patient stopped and immediately said "What am I doing? What happened." Upon my arrival patient says she feels tired, but knows where she is and is not confused. Vital signs were BP: 111/73. HR: 108. Ativan 2mg given. Patient then asks nurse for iv benadryl for her headache. Prolactin and CPK ordered stat. Patient to go for planned MRI. Psych consult placed, Dr. Villeda, help appreciated <Gregorio Lambert - Last Filed: 06/13/17 14:16> [employer]ING TEACHER Nurses Assessment - Vital Signs Vital Signs: Rapid Response Vital Sign Blood Pressure 111/73 Pulse Rate 108 - Vital Signs at end of CITY [employer]ANNING TEACHER Vital Signs at end of CITY PLANNING TEACHER: Rapid Response End Vital Sign Blood Pressure 97/61 Pulse Rate 111 Respiratory Rate 18 Temperature 98.3 F Attending/Attestation - Attestation I have personally seen and examined this patient.: Yes I have fully participated in the care of the patient.: Yes I have reviewed all pertinent clinical information, including history, physical exam and plan: Yes Notes (Text): follow MRI and EEG reports. 06/13/17 14:16
--- NOTE | 2017-06-13 15:47 | MRI ---
PROCEDURE: MRI BRAIN WITHOUT CONTRAST HISTORY: Seizure COMPARISON: Comparison made with CT scan brain TECHNIQUE: Multiplanar, multisequence MR images of the brain were obtained without intravenous contrast enhancement. . This examination is limited by motion artifact FINDINGS: HEMORRHAGE: No acute parenchymal, subarachnoid or extra-axial hemorrhage. DWI: No evidence of an acute or early subacute infarction. BRAIN PARENCHYMA: No mass effect or edema. No atrophy or chronic microvascular ischemic changes. VENTRICLES: Unremarkable. No hydrocephalus. CRANIUM: Unremarkable. ORBITS: Grossly unremarkable. PARANASAL SINUSES/MASTOIDS: Clear Visualized major vascular flow voids at skull base patent. VASCULAR SYSTEM: OTHER FINDINGS: None. IMPRESSION: Limited motion degraded study.
--- NOTE | 2017-06-13 15:51 | MRI ---
PROCEDURE: Magnetic Resonance Angiography Brain HISTORY: History of Migraine COMPARISON: None available. TECHNIQUE: 3D time of flight MR angiography of the intracranial arteries was performed. Rotating maximum intensity projection images were generated. FINDINGS: INTERNAL CAROTID ARTERIES: Unremarkable. The skull base, petrous, cavernous and supraclinoid segments are bilaterally widely patient. ANTERIOR CEREBRAL ARTERIES: Unremarkable. A1 and A2 segments are widely patent. Smaller distal branches unremarkable, as visualized. MIDDLE CEREBRAL ARTERIES: Unremarkable. M1 and M2 segments are widely patent. Perisylvian branches grossly symmetric. POSTERIOR CIRCULATION: Basilar Artery: Unremarkable. Distal Vertebral Arteries: Unremarkable. Posterior Cerebral Arteries: Unremarkable. Posterior Inferior Cerebellar Arteries: Unremarkable. ANEURYSM/ VASCULAR MALFORMATIONS: None. OTHER FINDINGS: None. IMPRESSION: Unremarkable MR angiography of the brain.
--- NOTE | 2017-06-13 15:56 | MRI ---
PROCEDURE: MR Angiography of the neck without contrast HISTORY: Migraines COMPARISON: None available. TECHNIQUE: 3D [id number] angiography of the neck was performed. Rotating maximum intensity projection images of the cervical carotid and vertebral arteries were generated. The origins of the common carotid arteries were not visualized, which is a limitation inherent to the non-contrast time of flight technique. Examination is limited due to motion artifact. FINDINGS: This examination is limited due to motion artifact as mentioned above with stairstep artifact. No definitive evidence of occlusion nor significant stenosis of the visualized portions of the common carotid arteries or internal carotid artery so far as can be seen within limitation of this study. Vertebral arteries are patent as well. Consider followup carotid Doppler on if further evaluation is required. IMPRESSION: Limited motion degraded study. No definitive evidence of occlusion or significant stenosis so far as can be seen within limitation of the exam. Consider followup carotid Doppler exam.
--- NOTE | 2017-06-14 00:20 | EEG ---
DATE: 06/13/2017 Technical Information: Electrodes were placed according to the 10-20 International electrode system by nuclear medicine chief technologist. Total of 23 electrodes (21 EEG and 2 EKG) were placed. EEG activity was digitally recorded referentially to P1/P2 or A1/A2 electrodes. Continuous monitoring with EEG was performed using digital analysis for spike detection. The [employer] spike and seizure detection algorithms were used for digital EEG analysis throughout the monitoring period to screen the EEG in real-time and angelia the data file with pointers to electrographic seizures and interictal discharges. EEG was screened for electrographic seizures and interictal discharges by a technologist. Physician, epileptologist reviewed detections as well as extensive random samples and whole EEG study in detail. Digital EEG Analysis: Was carried out including FFT (Fast Fourier Transform), R2D2 (Rhythmicity Run Detection and Display), Relative Asymmetry Spectrogram, and voltage plot by the [employer] Software. The Qualitative EEG analysis and the voltage plot mapping were used for detection of foci of paroxysmal and abnormal electrical cortical activity. General Description: Background Rhythm: There is a well-formed, 8-10 Hz posterior dominant rhythm that is reactive, symmetric, and attenuates with eye opening. There was a normal amount of frontal beta noted bilaterally. There is no sleep recorded. Normal sleep patterns were captured, including bilaterally symmetric 12-14 Hz spindles, vertex waves, and K complexes. Activation Procedures: Photic stimulation: There is no driving noted. Hyperventilation: There is slowing noted that is self-remitted. Abnormal Activity: There are no focal epileptiform discharges noted. No clinical or subclinical seizures noted. Impression: This is a normal awake and sleep EEG. No clinical or subclinical seizures were noted. Clinical correlation is required. Justin Greco MD
--- NOTE | 2017-06-14 06:32 | CP.PCM.PN ---
Subjective - Date & Time of Evaluation Date of Evaluation: 06/14/17 Time of Evaluation: 06:32 - Subjective Subjective: Ms. Pham was seen and examined at the bedside. She is alert, oriented and complaining of feeling generalized body malaise. She is able to move all extremities and keeps on requesting for IV benadryl. She denies any headache and keeps on stating of needs pain medications. MRI of the brain showed limited motion, MRA of the head and neck are unremarkable. There was no untoward events overnight. Objective - Vital Signs/Intake and Output Vital Signs (last 24 hours): Temp Pulse Resp BP Pulse Ox 97.6 F 84 20 104/68 98 06/14/17 04:05 06/14/17 04:05 06/14/17 04:05 06/14/17 04:05 06/14/17 04:05 Intake and Output: 06/13/17 06/14/17 18:59 06:59 Intake Total 500 240 Balance 500 240 - Medications Medications: Current Medications Acetaminophen/Butalbital/Caffeine (Fioricet) 1 tab PO DAILY PRN PRN Reason: Headache Last Admin: 06/13/17 00:31 Dose: 1 tab Amitriptyline HCl (Elavil) 150 mg PO BID [facility] Last Admin: 06/13/17 17:27 Dose: 150 mg Gabapentin (Neurontin) 800 mg PO Q24H [facility] Last Admin: 06/13/17 08:14 Dose: 800 mg Gabapentin (Neurontin) 1,800 mg PO HS [facility] Last Admin: 06/13/17 21:41 Dose: 1,800 mg Heparin Sodium (Porcine) (Heparin) 5,000 units SC Q8 [facility] Last Admin: 06/14/17 06:21 Dose: 5,000 units Hydroxychloroquine Sulfate (Plaquenil) 200 mg PO BID [facility] PRN Reason: Protocol Last Admin: 06/13/17 17:27 Dose: 200 mg Levetiracetam (Keppra) 750 mg PO BID [facility] Last Admin: 06/13/17 17:27 Dose: 750 mg Midodrine (Proamatine) 5 mg PO TID [facility] Last Admin: 06/13/17 17:28 Dose: 5 mg - Labs Labs: 06/13/17 06:58 06/13/17 06:58 - Constitutional Appears: No Acute Distress - Head Exam Head Exam: NORMAL INSPECTION - Neurological Exam Neurological Exam: Alert, Awake, Oriented x3 Neuro motor strength exam: Left Upper Extremity: 5, Right Upper Extremity: 5, Left Lower Extremity: 5, Right Lower Extremity: 5 Additional comments: She is alert, oriented, moves all extremities Assessment and Plan (1) Seizure Assessment & Plan: Case discussed with Dr. Johnson, continue all current medical regimen. Pending EEG result. Status: Acute
[2017-06-14 08:33] VITALS: RESP 18
--- NOTE | 2017-06-14 09:03 | US ---
Thyroid ultrasound History: Thyromegaly. Comparison: None available. Technique: Real-time sonography was performed through the thyroid. Findings: Right lobe: Prominent measuring 6.6 x 2.0 x 2.5 centimeters. Heterogeneous echotexture. Normal flow. Midpole hypoechoic nodule with punctate central area of increased central echogenicity measuring 4 x 2 x 3 millimeters. Thyroid isthmus: Prominent measuring 6.6 millimeters. Heterogeneous echotexture. Normal flow. Left lobe: Prominent measuring 6.3 x 2.0 x 2.0 centimeters. Heterogeneous echotexture. Normal flow. Upper pole hypoechoic nodule with punctate central area of increased echogenicity measuring 4 x 2 x 2 millimeters. Impression: Diffuse enlargement of the thyroid gland. Clinical correlation. Small bilateral thyroid nodules as described above.
[2017-06-14] MEDS ORDERED: Valproate 500 MG in Sodium Chloride 0.9% 100 ML IVPB ONE (10:08)
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
[2017-06-14 12:09] LABS: BASO % 0.3 % (0.0-2.0); EOS # 0.1 K/uL (0.0-0.7); EOS % 1.4 % (0.0-4.0); HEMOGLOBIN 10.9 g/dL (11.0-16.0); LYMPH # 1.4 K/uL (1.0-4.3); LYMPH % 32.9 % (20.0-40.0); MEAN CELL VOLUME 91.3 fL (81.0-99.0); MEAN CORPUSCULAR HEMOGLOBIN 30.6 pg (27.0-31.0); MEAN CORPUSCULAR HGB CONC 33.6 g/dL (33.0-37.0); MEAN PLATELET VOLUME 7.6 fL (7.2-11.7); MONO # 0.3 K/uL (0.0-0.8); MONO % 5.9 % (0.0-10.0); NEUT # 2.6 K/uL (1.8-7.0); NEUT % 59.5 % (50.0-75.0); RBC 3.56 Mil/uL (3.80-5.20); RED CELL DISTRIBUTION WIDTH 13.6 % (11.5-14.5); WHITE BLOOD COUNT 4.3 K/uL (4.8-10.8)
[2017-06-14 12:26] LABS: ALB/GLOB RATIO 0.9 (1.0-2.1); ALBUMIN 3.5 g/dL (3.5-5.0); ALT/SGPT 11 U/L (9-52); AST/SGOT 19 U/L (14-36); BLOOD UREA NITROGEN 7 mg/dL (7-17); CALCIUM 8.4 mg/dl (8.6-10.4); GFR AFRICAN-AMERICAN > 60; GFR NON-AFRICAN AMERICAN > 60
[2017-06-14] MEDS: Magnesium Sulfate 1 gm in D5W 1 GM/100 ML BAG IVPB SCH ×2 (12:54→13:26)
--- NOTE | 2017-06-14 16:33 | CP.PCM.DIS ---
<RickShira Ethel - Last Filed: 06/14/17 17:23> Provider - Provider Date of Admission: 06/12/17 15:10 Attending physician: Milton Armando DO Primary care physician: Dr. Martin Pugh Consults: Neuro (Dr. Johnson) Psych (Dr. Villeda) Time Spent in preparation of Discharge (in minutes): 40 Diagnosis - Discharge Diagnosis (1) Seizure Status: Chronic Comment: vs pseudoseizures (2) Migraine Status: Chronic (3) Lupus Status: Chronic (4) Fibromyalgia Status: Chronic (5) Anemia Status: Chronic Hospital Course - Lab Results Lab Results: Most Recent Lab Values WBC 4.3 K/uL (4.8-10.8) L 06/14/17 12:01 RBC 3.56 Mil/uL (3.80-5.20) L 06/14/17 12:01 Hgb 10.9 g/dL (11.0-16.0) L 06/14/17 12:01 Hct 32.5 % (34.0-47.0) L 06/14/17 12:01 MCV 91.3 fL (81.0-99.0) 06/14/17 12:01 MCH 30.6 pg (27.0-31.0) 06/14/17 12:01 MCHC 33.6 g/dL (33.0-37.0) 06/14/17 12:01 RDW 13.6 % (11.5-14.5) 06/14/17 12:01 Plt Count 222 K/uL (130-400) 06/14/17 12:01 MPV 7.6 fL (7.2-11.7) 06/14/17 12:01 Neut % (Auto) 59.5 % (50.0-75.0) 06/14/17 12:01 Lymph % (Auto) 32.9 % (20.0-40.0) 06/14/17 12:01 [place] % (Auto) 5.9 % (0.0-10.0) 06/14/17 12:01 Eos % (Auto) 1.4 % (0.0-4.0) 06/14/17 12:01 Baso % (Auto) 0.3 % (0.0-2.0) 06/14/17 12:01 Neut # (Auto) 2.6 K/uL (1.8-7.0) 06/14/17 12:01 Lymph # (Auto) 1.4 K/uL (1.0-4.3) 06/14/17 12:01 [place] # (Auto) 0.3 K/uL (0.0-0.8) 06/14/17 12:01 Eos # (Auto) 0.1 K/uL (0.0-0.7) 06/14/17 12:01 Baso # (Auto) 0.0 K/uL (0.0-0.2) 06/14/17 12:01 Neutrophils % (Manual) 61 % (50-75) 06/12/17 14:45 Lymphocytes % (Manual) 27 % (20-40) 06/12/17 14:45 Monocytes % (Manual) 9 % (0-10) 06/12/17 14:45 Eosinophils % (Manual) 3 % (0-4) 06/12/17 14:45 Platelet Estimate Normal (NORMAL) 06/12/17 14:45 Anisocytosis (manual) Slight 06/12/17 14:45 Sodium 143 mmol/L (132-148) 06/14/17 12:01 Potassium 4.2 mmol/L (3.6-5.2) 06/14/17 12:01 Chloride 105 mmol/L (98-107) 06/14/17 12:01 Carbon Dioxide 28 mmol/L (22-30) 06/14/17 12:01 Anion Gap 13 (10-20) 06/14/17 12:01 BUN 7 mg/dL (7-17) 06/14/17 12:01 Creatinine 0.7 mg/dL (0.7-1.2) 06/14/17 12:01 Est GFR ( Amer) > 60 06/14/17 12:01 Est GFR (Non-Af Amer) > 60 06/14/17 12:01 POC Glucose (mg/dL) 75 mg/dL (65-110) 06/12/17 13:54 Random Glucose 102 mg/dL (65-105) 06/14/17 12:01 Calcium 8.4 mg/dl (8.6-10.4) L 06/14/17 12:01 Phosphorus 3.0 mg/dL (2.5-4.5) 06/13/17 06:58 Magnesium 2.1 mg/dL (1.6-2.3) 06/13/17 06:58 Iron 38 ug/dL (37-170) 06/13/17 06:58 TIBC 247 ug/dL (250-450) L 06/13/17 06:58 % Saturation 15 (20-55) L 06/13/17 06:58 Ferritin 16.0 ng/mL 06/13/17 06:58 Total Bilirubin 0.2 mg/dL (0.2-1.3) 06/14/17 12:01 AST 19 U/L (14-36) 06/14/17 12:01 ALT 11 U/L (9-52) 06/14/17 12:01 Alkaline Phosphatase 76 U/L (38-126) 06/14/17 12:01 Total Creatine Kinase 33 U/L (30-135) 06/13/17 06:58 Total Protein 7.3 g/dL (6.3-8.3) 06/14/17 12:01 Albumin 3.5 g/dL (3.5-5.0) D 06/14/17 12:01 Globulin 3.8 gm/dL (2.2-3.9) 06/14/17 12:01 Albumin/Globulin Ratio 0.9 (1.0-2.1) L 06/14/17 12:01 Vitamin B12 264 pg/mL (239-931) 06/13/17 06:58 Folate 5.2 ng/mL 06/13/17 06:58 Procalcitonin < 0.05 NG/ML (0.19-0.49) L 06/12/17 21:00 Free T4 0.62 ng/dL (0.78-2.19) L 06/13/17 06:58 TSH 3rd Generation 0.89 mIU/L (0.46-4.68) 06/13/17 06:58 Beta HCG, Quant < 2.39 mIU/ML 06/12/17 14:45 Urine Opiates Screen Negative (NEGATIVE) 06/12/17 15:30 Urine Methadone Screen Negative (NEGATIVE) 06/12/17 15:30 Ur Barbiturates Screen Negative (NEGATIVE) 06/12/17 15:30 Ur Phencyclidine Scrn Negative (NEGATIVE) 06/12/17 15:30 Ur Amphetamines Screen Negative (NEGATIVE) 06/12/17 15:30 U Benzodiazepines Scrn Negative (NEGATIVE) 06/12/17 15:30 U Oth Cocaine Metabols Negative (NEGATIVE) 06/12/17 15:30 U Cannabinoids Screen Positive (NEGATIVE) H 06/12/17 15:30 - Hospital Course Hospital Course: HPI: "Patient is a 36 year old female who moved from [place] one month ago and who has an extensive medical history of Lupus (diagnosed in 1998), Fibromyalgia (2006), PE b/l (2009), Migraines, Antiphospholipid syndrome (2010), seizures, pericarditis who presents today after having a seizure. Patient says she had a seizure one year ago, but her mother thought it was more of a fainting spell. Patient was admitted to the hospital and had an EEG which she said was normal and was discharged without any seizure medications. Patient has had no seizure activity since until this past week. Patient had a seizure on Tuesday and hit her face on the ground. Seizure lasted about 10-15 minutes according to her . Patient came to the ED and left AMA (even though she states she was discharged). The same night patient had another seizure which last 4-5 minutes. During both seizures patient bit her tongue and had shaking throughout her body. 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 Her stepped away to get her some food and when he came back she started to seize. The seizure lasted about 4 minutes after which she was confused for about 10 minutes. Patient did not fall during this episode. Patient has never been incontinent of stool or urine during an episode. " Patient admitted to the hospital for seizures. Loading dose of Keppra given in ED and then BID dosing continued. Dr. Johnson (neuro) consulted. While in the hospital patient had two shaking episodes. During the first episode patient was sitting upright in the chair and was shaking for about 3 minutes. Second episode patient was in the bed and shook for about 2 minutes. Patient had no postictal state either episode. Patient did not bite tongue or have any bowel or bladder incontinence. As per nursing during second episode patient flinched when nurse tried to open her eyes. MRI of brain was negative. Head and neck MRA were negative. EEG was negative. Keppra was stopped. Patient will need to follow up with neuro as an outpatient. Patient was continued on Amitryptiline for her headaches. Patient also given magnesium sulfate IV. Patient to continue magnesium oxide as an outpatient. During her hospital stay patient asked multiple times for Fioricet, iv benadryl , and morphine saying this is the only thing that helps her headaches. Dr. Villeda was consulted (psych) who recommended patient be discharged on Depakote 250mg HS. Patient encouraged to go to a psychiatrist/ psychologist as an outpatient for her depression/ anxiety. Patient's chronic conditions Lupus and Fibromyalgia were treated with her home medications Gabapentin and Hydroxychloroquine. On physical exam thyroid was enlarged. Free T4 was low at .62 and TSH was normal at .89. Ultrasound showed diffuse enlargement of the thyroid gland. Small bilateral thyroid nodules. Patient will need to follow up with PMD for further eval. This is a summary of the patient's hospital course, please see chart for full details. Discharge Exam - Head Exam Head Exam: ATRAUMATIC, NORMAL INSPECTION, NORMOCEPHALIC - Eye Exam Eye Exam: EOMI, Normal appearance Pupil Exam: NORMAL ACCOMODATION - Respiratory Exam Respiratory Exam: Clear to PA & Lateral, NORMAL BREATHING PATTERN, UNREMARKABLE - Cardiovascular Exam Cardiovascular Exam: REGULAR RHYTHM, RRR, +S1, +S2 - GI/Abdominal Exam GI & Abdominal Exam: Normal Bowel Sounds, Soft. absent: Distended, Firm, Tenderness - Extremities Exam Extremities exam: normal inspection - Neurological Exam Neurological exam: Alert, CN II-XII Intact, Oriented x3 - Psychiatric Exam Psychiatric exam: Depressed, Normal Affect - Skin Skin Exam: Intact, Normal Color, Warm Discharge Plan - Discharge Medications Prescriptions: Amitriptyline HCl 150 mg PO BID #14 tablet Divalproex [Depakote] 250 mg PO HS #14 tcp Gabapentin [Neurontin] 1,800 mg PO HS #7 tab Gabapentin [Neurontin] 800 mg PO DAILY #7 tab Hydroxychloroquine Sulfate [Plaquenil] 1 tab PO BID #14 tablet Magnesium Oxide [Magox 400] 400 mg PO BID #28 tablet Midodrine [Proamatine] 5 mg PO TID 7 Days #21 tab - Follow Up Plan Condition: STABLE Disposition: HOME/ ROUTINE Instructions: Heart Healthy Diet, Migraine Headache (DC), Seizures, Adult (DC) , Fibromyalgia (DC), Amitriptyline, Gabapentin, Hydroxychloroquine, Magnesium Oxide, Midodrine, Valproic Acid and Derivatives Additional Instructions: Patient stable for discharge as per Dr. Lambert, Dr. Johnson (neurology), and Dr. Villeda (psychiatry). Patient to follow up with her pmd Dr. Pugh and neurology within one week. Patient to follow up with [facility] within 2 weeks. Patient to continue medications as prescribed. Patient to start Depakote DR 250mg by mouth at before bed and MagOx 400mg by mouth twice a day. Patient to return to ED if symptoms return/ worsen. Patient explained instructions who understands and agrees. Referrals: [facility] [Outside] Cheng Johnson MD [Staff Provider] - Martin Pugh MD [Medical Doctor] - <Gregorio Lambert - Last Filed: 06/15/17 13:21> Provider - Provider Date of Admission: 06/12/17 15:10 Attending physician: Milton Armnado DO Hospital Course - Lab Results Lab Results: Most Recent Lab Values WBC 4.3 K/uL (4.8-10.8) L 06/14/17 12:01 RBC 3.56 Mil/uL (3.80-5.20) L 06/14/17 12:01 Hgb 10.9 g/dL (11.0-16.0) L 06/14/17 12:01 Hct 32.5 % (34.0-47.0) L 06/14/17 12:01 MCV 91.3 fL (81.0-99.0) 06/14/17 12:01 MCH 30.6 pg (27.0-31.0) 06/14/17 12:01 MCHC 33.6 g/dL (33.0-37.0) 06/14/17 12:01 RDW 13.6 % (11.5-14.5) 06/14/17 12:01 Plt Count 222 K/uL (130-400) 06/14/17 12:01 MPV 7.6 fL (7.2-11.7) 06/14/17 12:01 Neut % (Auto) 59.5 % (50.0-75.0) 06/14/17 12:01 Lymph % (Auto) 32.9 % (20.0-40.0) 06/14/17 12:01 [place] % (Auto) 5.9 % (0.0-10.0) 06/14/17 12:01 Eos % (Auto) 1.4 % (0.0-4.0) 06/14/17 12:01 Baso % (Auto) 0.3 % (0.0-2.0) 06/14/17 12:01 Neut # (Auto) 2.6 K/uL (1.8-7.0) 06/14/17 12:01 Lymph # (Auto) 1.4 K/uL (1.0-4.3) 06/14/17 12:01 [place] # (Auto) 0.3 K/uL (0.0-0.8) 06/14/17 12:01 Eos # (Auto) 0.1 K/uL (0.0-0.7) 06/14/17 12:01 Baso # (Auto) 0.0 K/uL (0.0-0.2) 06/14/17 12:01 Neutrophils % (Manual) 61 % (50-75) 06/12/17 14:45 Lymphocytes % (Manual) 27 % (20-40) 06/12/17 14:45 Monocytes % (Manual) 9 % (0-10) 06/12/17 14:45 Eosinophils % (Manual) 3 % (0-4) 06/12/17 14:45 Platelet Estimate Normal (NORMAL) 06/12/17 14:45 Anisocytosis (manual) Slight 06/12/17 14:45 Sodium 143 mmol/L (132-148) 06/14/17 12:01 Potassium 4.2 mmol/L (3.6-5.2) 06/14/17 12:01 Chloride 105 mmol/L (98-107) 06/14/17 12:01 Carbon Dioxide 28 mmol/L (22-30) 06/14/17 12:01 Anion Gap 13 (10-20) 06/14/17 12:01 BUN 7 mg/dL (7-17) 06/14/17 12:01 Creatinine 0.7 mg/dL (0.7-1.2) 06/14/17 12:01 Est GFR ( Amer) > 60 06/14/17 12:01 Est GFR (Non-Af Amer) > 60 06/14/17 12:01 POC Glucose (mg/dL) 75 mg/dL (65-110) 06/12/17 13:54 Random Glucose 102 mg/dL (65-105) 06/14/17 12:01 Calcium 8.4 mg/dl (8.6-10.4) L 06/14/17 12:01 Phosphorus 3.0 mg/dL (2.5-4.5) 06/13/17 06:58 Magnesium 2.1 mg/dL (1.6-2.3) 06/13/17 06:58 Iron 38 ug/dL (37-170) 06/13/17 06:58 TIBC 247 ug/dL (250-450) L 06/13/17 06:58 % Saturation 15 (20-55) L 06/13/17 06:58 Ferritin 16.0 ng/mL 06/13/17 06:58 Total Bilirubin 0.2 mg/dL (0.2-1.3) 06/14/17 12:01 AST 19 U/L (14-36) 06/14/17 12:01 ALT 11 U/L (9-52) 06/14/17 12:01 Alkaline Phosphatase 76 U/L (38-126) 06/14/17 12:01 Total Creatine Kinase 33 U/L (30-135) 06/13/17 06:58 Total Protein 7.3 g/dL (6.3-8.3) 06/14/17 12:01 Albumin 3.5 g/dL (3.5-5.0) D 06/14/17 12:01 Globulin 3.8 gm/dL (2.2-3.9) 06/14/17 12:01 Albumin/Globulin Ratio 0.9 (1.0-2.1) L 06/14/17 12:01 Vitamin B12 264 pg/mL (239-931) 06/13/17 06:58 Folate 5.2 ng/mL 06/13/17 06:58 Procalcitonin < 0.05 NG/ML (0.19-0.49) L 06/12/17 21:00 Free T4 0.62 ng/dL (0.78-2.19) L 06/13/17 06:58 TSH 3rd Generation 0.89 mIU/L (0.46-4.68) 06/13/17 06:58 Beta HCG, Quant < 2.39 mIU/ML 06/12/17 14:45 Urine Opiates Screen Negative (NEGATIVE) 06/12/17 15:30 Urine Methadone Screen Negative (NEGATIVE) 06/12/17 15:30 Ur Barbiturates Screen Negative (NEGATIVE) 06/12/17 15:30 Ur Phencyclidine Scrn Negative (NEGATIVE) 06/12/17 15:30 Ur Amphetamines Screen Negative (NEGATIVE) 06/12/17 15:30 U Benzodiazepines Scrn Negative (NEGATIVE) 06/12/17 15:30 U Oth Cocaine Metabols Negative (NEGATIVE) 06/12/17 15:30 U Cannabinoids Screen Positive (NEGATIVE) H 06/12/17 15:30 Attending/Attestation - Attestation I have personally seen and examined this patient.: Yes I have fully participated in the care of the patient.: Yes I have reviewed all pertinent clinical information, including history, physical exam and plan: Yes Notes (Text): Patient was seen and examined on the day of discharge. Reports discussed. Medication and follow up discussed. I agree with the resident's documentation
[2017-06-14 17:05] VITALS: BP 89/58; PULSE 80; TEMP 97.8
[2017-06-14] MEDS ORDERED: Divalproex 500 mg DR Tab PO SCH (18:00)
[2017-06-15 18:08] VITALS: O2SAT 98
== END 2017-06-14 18:36 | disposition home or self-care (01) | DRG 101 ==
LOC: C.ER 13:54 → C.9E 15:10 → C.6T 15:45
PROVIDERS: ADMIT Hospitalist; ATTEND Hospitalist
DX: G40.209 Localization-related (focal) (partial) symptomatic epilepsy and epileptic syndromes with complex partial seizures, not intractable, without status epilepticus (principal); D68.61 Antiphospholipid syndrome; G43.909 Migraine, unspecified, not intractable, without status migrainosus; M16.0 Bilateral primary osteoarthritis of hip; M32.9 Systemic lupus erythematosus, unspecified; Z87.891 Personal history of nicotine dependence; F12.90 Cannabis use, unspecified, uncomplicated; F41.9 Anxiety disorder, unspecified; F32.9 Major depressive disorder, single episode, unspecified; I95.9 Hypotension, unspecified; M79.7 Fibromyalgia; D63.8 Anemia in other chronic diseases classified elsewhere

== ENCOUNTER 2018-02-09 13:02 | Emergency (ER) | payer MEDICARE, MEDICAID ==
[2018-02-09 13:02] VITALS: BMI 24.7
--- NOTE | 2018-02-09 13:31 | C.PDOC ---
History Of Present Illness 37 y/o with PMH of lupus and chronic pain who presents to the ED c/o left sided rib pain s/p fall this morning. Pt was stepping out of the bath tub when she slipped and hit her left side on the bath tub rim. Has appointment with pain management doctor tomorrow. Denies head strike or LOC. Denies SOB, chest pain, abdominal pain, N/V, headache, vision changes, hemoptysis, or any other associated complaints. Time Seen by Provider: 02/09/18 13:15 Chief Complaint (Nursing): Back Pain History Per: Patient Past Medical History Vital Signs: Last Vital Signs Temp 97.4 F L 02/09/18 13:12 Pulse 78 02/09/18 13:12 Resp 18 02/09/18 13:12 BP 93/63 L 02/09/18 13:12 Pulse Ox 100 02/09/18 13:12 - Medical History PMH: Anxiety, Depression, Fibromyalgia, Fractures (Right wrist), Migraine, Multiple Sclerosis, Seizures Denies: Chronic Kidney Disease Surgical History: Appendectomy, Cholecystectomy - [facility] Procedures INJECT/INFUSE NEC (09/06/12) VACCINATION NEC (08/11/12) Family History: States: Unknown Family Hx - Social History Hx Alcohol Use: No Hx Substance Use: Yes - Immunization History Hx Tetanus Toxoid Vaccination: No Hx Influenza Vaccination: No Hx Pneumococcal Vaccination: No Physical Exam - Physical Exam Appears: Well, No Acute Distress Skin: Normal Color, Warm, Dry Head: Atraumatic, Normacephalic, No Tenderness Eye(s): bilateral: Normal Inspection, PERRL, EOMI Ear(s): Bilateral: Normal Nose: Normal Neck: Normal, Normal ROM, No Midline Cervical Tenderness Lymphatic: Normal Exam Chest: Symmetrical, No Deformity, Tenderness (left lateral lower ribs), No Ecchymosis, No Subcutaneous Emphysema Cardiovascular: Rhythm Regular Respiratory: Normal Breath Sounds Gastrointestinal/Abdominal: Normal Exam, Bowel Sounds (normoactive), Soft, No Tenderness, No Distention, No Guarding Back: Normal Inspection, No CVA Tenderness, No Vertebral Tenderness, Paraspinal Tenderness (left thoracic) Extremity: Normal ROM, No Tenderness, Capillary Refill (<2s), No Deformity, No Swelling Extremity: Bilateral: Atraumatic, No Pedal Edema, Normal Color And Temperature, Normal ROM Pulses: Left Radial: Normal, Right Radial: Normal, Left Dorsalis Pedis: Normal, Right Dorsalis Pedis: Normal Neurological/Psych: Oriented x3, Normal Speech, Normal Cognition, Normal Motor, Normal Sensation Gait: Steady ED Course And Treatment O2 Sat by Pulse Oximetry: 100 - Other Rad Ribs and CXR X-Ray: Viewed By Me, Read By Radiologist Interpretation: No rib fracture. No active pulmonary disease. Medical Decision Making Medical Decision Making: Initial Plan: * Left sided rib films and PA chest film * Percocet Dr. Johnson examined patient at bedside, recommends no further imaging or workup, discharge home with pain medication and outpatient followup. BP retaken at 118/72 by me. Patient states she has had Percocet multiple times before without allergic reaction, on oxycodone at baseline for chronic pain. States she is out of medication, has pain management appointment tomorrow. Will give 3 tabs. Diagnostic testing results and plan of care discussed with patient. Strict instructions given regarding prescription use, incentive spirometry use, importance of followup, and signs/symptoms to return to ER including difficulty breathing, worsening pain, N/V, dizziness or any other new/worsening symptoms. Pt verbalized understanding of discussion. Patient is A&Ox3, ambluating with steady gait, with vital signs stable for discharge. Disposition - Disposition Referrals: [facility] [Outside] Bea Santos MD [Staff Provider] - Disposition: HOME/ ROUTINE Disposition Time: 15:15 Condition: IMPROVED Additional Instructions: Use incentive spirometer 10 times daily Percocet every 6 hours as needed for severe pain Lidoderm patches daily, 12 hours on 12 hours off Apply ice 20 min every hour, no direct skin contact Followup with primary tomorrow Return to ER for any new/worsening symptoms Prescriptions: Lidocaine 5% [Lidoderm] 1 ea TD DAILY PRN #30 patch PRN Reason: Pain, Mild (1-3) oxyCODONE/Acetaminophen [Percocet 5/325 mg Tab] 1 tab PO Q6H PRN #3 tab PRN Reason: Pain, Severe (8-10) Instructions: How to Use an Incentive Spirometer, Bruised Rib (DC) Forms: General Discharge Instructions, [facility] ([place]), Work Excuse - Clinical Impression Clinical Impression: Fall, Bruised ribs
[2018-02-09 13:32] VITALS: BP 93/63; PULSE 78; RESP 18; TEMP 97.4; O2SAT 100
--- NOTE | 2018-02-09 13:57 | RAD ---
Date of service: 02/09/2018 PROCEDURE: Radiographs of the Chest and Left Ribs. HISTORY: fall, left sided posterior rib pain COMPARISON: None available. TECHNIQUE: Frontal radiograph of the chest and multiple oblique radiographs of the left ribs were obtained. FINDINGS: LEFT RIBS: No fracture or focal lesion visualized. LUNGS: Clear. PLEURA: No pneumothorax or pleural fluid. CARDIOVASCULAR: Normal cardiac size. No pulmonary vascular congestion. No aortic atherosclerotic calcification present MediPort inserted tip at cyst cavoatrial junction OTHER FINDINGS: None. IMPRESSION: Unremarkable radiographs of the chest and left ribs. No left rib fracture.
[2018-02-09] MEDS ORDERED: Oxycodone/Acetaminophen 5/325 mg Tab PO STA (14:31)
[2018-02-09] MEDS ORDERED: Lidocaine 5% Patch TD STA (14:39)
[2018-02-09] MEDS ORDERED: Lidocaine 5% Patch TD ONE (15:00)
[2018-02-09] MEDS ORDERED: Oxycodone/Acetaminophen 5/325 mg Tab ONE (15:00)
== END 2018-02-09 15:18 | disposition home or self-care (01) ==
LOC: C.ER 13:02
DX: S20.02XA Contusion of left breast, initial encounter (principal); W18.2XXA Fall in (into) shower or empty bathtub, initial encounter

== ENCOUNTER 2018-02-22 09:37 | Outpatient (CLI) | payer MEDICARE, MEDICAID | END 2018-02-22 09:38 | disposition home or self-care (01) | LOC: C.RADIC 09:37 | DX: M94.9 Disorder of cartilage, unspecified (principal) ==

== ENCOUNTER 2018-03-27 12:52 | Observation (INO) | payer MEDICARE, MEDICAID ==
[2018-03-27 12:53] VITALS: BMI 24.7
--- NOTE | 2018-03-27 13:21 | C.PDOC ---
History Of Present Illness 37 y/o F c PMHx Lupus, PEs, pericarditis p/w dyspnea, palpitations, and midsternal chest pain radiating to bilateral chest x 2 days. Denies hemoptysis, vomiting, abdominal pain. <Marv Madsen - Last Filed: 03/27/18 18:57> <Marv Madsen - Last Filed: 03/27/18 18:57> <Rosie Johnson M - Last Filed: 03/27/18 21:53> Time Seen by Provider: 03/27/18 12:56 Past Medical History - Medical History PMH: Anxiety, Depression, Fibromyalgia, Fractures (Right wrist), Migraine, Multiple Sclerosis, Seizures Denies: Chronic Kidney Disease Surgical History: Appendectomy, Cholecystectomy - [facility] Procedures INJECT/INFUSE NEC (09/06/12) VACCINATION NEC (08/11/12) Family History: States: Unknown Family Hx - Social History Hx Alcohol Use: No Hx Substance Use: Yes - Immunization History Hx Tetanus Toxoid Vaccination: No Hx Influenza Vaccination: No Hx Pneumococcal Vaccination: No <Marv Madsen - Last Filed: 03/27/18 18:57> Vital Signs: Last Vital Signs Temp 97.7 F 03/27/18 20:40 Pulse 66 03/27/18 20:40 Resp 16 03/27/18 20:40 BP 122/71 03/27/18 20:40 Pulse Ox 95 03/27/18 20:40 - [facility] Procedures INJECT/INFUSE NEC (09/06/12) VACCINATION NEC (08/11/12) <WhitleyRosie vieira M - Last Filed: 03/27/18 21:53> Review Of Systems Except As Marked, All Systems Reviewed And Found Negative. Constitutional: Negative for: Fever Gastrointestinal: Negative for: Vomiting <Marv Madsen - Last Filed: 03/27/18 18:57> Physical Exam - Physical Exam Additional Physical Exam Comments: Constitutional: No acute distress. Head: Normocephalic. Atraumatic. Eyes: PERRL. ENT: Moist mucous membranes. Neck: Supple. Cardiovascular: Tachycardic. Radial pulse 2+ bilaterally. Chest: No tenderness. Respiratory: Clear to auscultation bilaterally. GI: Soft. Nontender. Nondistended. Back: No CVA tenderness. Musculoskeletal: No tenderness or swelling of extremities. Skin: No rash. Neurologic: Alert, no focal deficit. <TenaMarv T - Last Filed: 03/27/18 18:57> ED Course And Treatment - Laboratory Results Result Diagrams: 03/27/18 15:54 03/27/18 15:54 <Marv Madsen Pamela - Last Filed: 03/27/18 18:57> - Laboratory Results Result Diagrams: 03/27/18 15:54 03/27/18 15:54 Lab Results: PT 11.9 SECONDS (9.7-12.2) 03/27/18 15:54 INR 1.1 03/27/18 15:54 APTT 41 SECONDS (21-34) H 03/27/18 15:54 D-Dimer, Quantitative 247 ng/mlDDU (0-243) H 03/27/18 15:54 Troponin I < 0.0120 ng/mL (0.00-0.120) 03/27/18 15:54 NT-Pro-B Natriuret Pep 64.4 pg/mL (0-450) 03/27/18 15:54 Total Bilirubin 0.3 mg/dL (0.2-1.3) 03/27/18 15:54 AST 16 U/L (14-36) 03/27/18 15:54 ALT 11 U/L (9-52) 03/27/18 15:54 Alkaline Phosphatase 73 U/L (38-126) 03/27/18 15:54 Total Protein 7.1 g/dL (6.3-8.3) 03/27/18 15:54 Albumin 3.9 g/dL (3.5-5.0) 03/27/18 15:54 Globulin 3.3 gm/dL (2.2-3.9) 03/27/18 15:54 Albumin/Globulin Ratio 1.2 (1.0-2.1) 03/27/18 15:54 Lipase 40 U/L (23-300) 03/27/18 15:54 Urine Color Paloma (YELLOW) 03/27/18 14:53 Urine Clarity Hazy (Clear) 03/27/18 14:53 Urine pH 7.0 (5.0-8.0) 03/27/18 14:53 Ur Specific [place] 1.021 (1.003-1.030) 03/27/18 14:53 Urine Protein 2+ mg/dL (NEGATIVE) H 03/27/18 14:53 Urine Glucose (UA) Normal mg/dL (Normal) 03/27/18 14:53 Urine Ketones Negative mg/dL (NEGATIVE) 03/27/18 14:53 Urine Blood Negative (NEGATIVE) 03/27/18 14:53 Urine Nitrate Negative (NEGATIVE) 03/27/18 14:53 Urine Bilirubin Negative (NEGATIVE) 03/27/18 14:53 Urine Urobilinogen Normal mg/dL (0.2-1.0) 03/27/18 14:53 Ur Leukocyte Esterase 1+ Nancy/uL (Negative) H 03/27/18 14:53 Urine WBC (Auto) 2 /hpf (0-5) 03/27/18 14:53 Urine RBC (Auto) 3 /hpf (0-3) 03/27/18 14:53 Ur Squamous Epith Cells 43 /hpf (0-5) H 03/27/18 14:53 Urine Bacteria Rare (<OCC) 03/27/18 14:53 Hyaline Casts 6-10 /lpf (0-2) H 03/27/18 14:53 Urine HCG, Qual Negative (NEGATIVE) 03/27/18 14:53 Urine HCG, Qual Negative (NEGATIVE) 03/27/18 14:53 <Rosie Johnson - Last Filed: 03/27/18 21:53> Medical Decision Making Medical Decision Making: Sinus rhythm, 106 bpm, no ST elevations. Impression: Left IJ approach central venous catheter extends the right atrium. No large central or segmental pulmonary embolus identified. No focal consolidation. Cholecystectomy clips. Dr. Greco consulted, evaluated in ED. Dr. Grossman accepts patient to medical service. <Marv Madsen - Last Filed: 03/27/18 18:57> Medical Decision Making: Patient signed out to me at shift change, 1900. Pending admission. Dr. Grossman contacted multiple times with no answer. Contacted Dr. Cristóbal Swift who accepts patient for admission. <Rosie Johnson - Last Filed: 03/27/18 21:53> Disposition - Disposition Disposition Time: 18:58 <Marv Madsen - Last Filed: 03/27/18 18:57> <Rosie Johnson - Last Filed: 03/27/18 21:53> - Disposition Disposition: HOSPITALIZED Condition: GUARDED - Clinical Impression Clinical Impression: Chest pain, Numbness
[2018-03-27] MEDS ORDERED: Oxycodone/Acetaminophen 5/325 mg Tab PO STA (14:37)
[2018-03-27] MEDS ORDERED: Oxycodone/Acetaminophen 5/325 mg Tab ONE (14:47)
--- NOTE | 2018-03-27 14:51 | CP.PCM.CON ---
<RickShira Ethel - Last Filed: 03/27/18 15:41> History of Present Illness - History of Present Illness History of Present Illness: Neuro consult note for Dr. Greco Patient is a 37 year old female with PMHx of Lupus (diagnosed in 1998), Fibromyalgia (2006), PE (2009), Migraines, Antiphospholipid syndrome (2010), seizures, MS, pericarditis who was sent to the ER today from Dr. Johnson's office for left arm and face numbness and tingling and chest pain. Patient says the chest pain started yesterday at rest and she says it feels like a tightness in the middle of her chest which she rates 10. Patient took Oxycodone yesterday which did not relieve the pain. Patient also admits to left arm and face "pins and needles" which started at about 9:30 am this morning while she was showering. Patient denies weakness, but admits to an associated headache. Patient sees Dr. Johnson for her migraines. Patient did not take any of her medications today. Patient denies any shortness of breath, abdominal pain, nausea, vomiting, constipation, or diarrhea. Full Code PMD: Dr. Martin Pugh Paper Conservator: Dr. Hsu Allergies: anaphylaxis to : Penicillin, NSAIDs, Topamax, Toradol, Tramadol, Zofran, Vanco, Lamictal, Imitrex PMHx: Lupus (diagnosed in 1998), Fibromyalgia (2006), PE (2009), Migraines, Antiphospholipid syndrome (2010), seizures, MS, pericarditis Psurg: L renal biopsy 1998- showing lupus nephritis, cholecystectomy 2005, total R hip replacement 2002, total L hip replacement 2015, r breast lumpectomy 2007, appendectomy 2014, r shoulder arthroscopy 2011, L underarm lymph node removed 2013, c section with tubal ligation 2004, uterine ablation 2013 Famhx: Dad: RA, Mom: migraines + vertigo Social: smoked 1 pack of cigarettes for about 10 years, stopped in 2012, no alcohol, smokes 3 joints of marijuana everyday for the past 5 years (used to smoke less since age 15) Home meds: Gabapentin 700 mg tid, Flexeril 10mg po tid, was on Plaquenil for years (was told by medical dir to stop it last week), Oxycodone 15mg po qid prn, Xanax 1mg qid prn, Depakote 500mg po BID Review of Systems - Constitutional Constitutional: absent: Chills, Fever - Cardiovascular Cardiovascular: Chest Pain. absent: Dyspnea - Respiratory Respiratory: absent: Cough - Gastrointestinal Gastrointestinal: absent: Abdominal Pain, Constipation, Diarrhea, Nausea, Vomiting - Musculoskeletal Musculoskeletal: Numbness, Tingling - Integumentary Integumentary: absent: Rash - Neurological Neurological: Headaches, Tingling. absent: Dizziness, Numbness, Focal Weakness, Weakness Past Patient History - Infectious Disease Hx of Infectious Diseases: None - Past Medical History & Family History Past Medical History?: Yes - Past Social History Smoking Status: Never Smoked - CARDIAC Hx Cardiac Disorders: Yes - PULMONARY Hx Respiratory Disorders: No - NEUROLOGICAL Hx Migraine: Yes Hx Multiple Sclerosis: Yes Hx Seizures: Yes - HEENT Hx HEENT Problems: No - RENAL Hx Chronic Kidney Disease: No - ENDOCRINE/METABOLIC Hx Endocrine Disorders: Yes Hx Systemic Lupus Erythematosus: Yes - HEMATOLOGICAL/ONCOLOGICAL Hx Blood Disorders: No - INTEGUMENTARY Hx Dermatological Problems: Yes Other/Comment: "Lupus rash" generalized - MUSCULOSKELETAL/RHEUMATOLOGICAL Hx Fractures: Yes (Right wrist) - GASTROINTESTINAL Hx Gastrointestinal Disorders: No - GENITOURINARY/GYNECOLOGICAL Hx Genitourinary Disorders: No - PSYCHIATRIC Hx Anxiety: Yes Hx Depression: Yes Hx Substance Use: Yes - SURGICAL HISTORY Hx Appendectomy: Yes Hx Cholecystectomy: Yes - ANESTHESIA Hx Anesthesia: Yes Hx Anesthesia Reactions: No Hx Malignant Hyperthermia: No Meds Allergies/Adverse Reactions: Allergies Allergy/AdvReac Type Severity Reaction Status Date / Time ketorolac [From Toradol] Allergy Verified 02/09/18 13:17 lamotrigine [From Lamictal] Allergy Verified 02/09/18 13:17 NSAIDS (Non-Steroidal Allergy Verified 02/09/18 13:17 Anti-Inflamma ondansetron Allergy Verified 02/09/18 13:17 [From Zofran (as hydrochloride)] Penicillins Allergy Verified 02/09/18 13:17 sumatriptan [From Imitrex] Allergy Verified 02/09/18 13:17 topiramate [From Topamax] Allergy Verified 02/09/18 13:17 tramadol Allergy Verified 02/09/18 13:17 vancomycin Allergy Verified 02/09/18 13:17 Physical Exam - Constitutional Appears: Non-toxic, No Acute Distress - Head Exam Head Exam: ATRAUMATIC, NORMAL INSPECTION, NORMOCEPHALIC - Eye Exam Eye Exam: EOMI, Normal appearance - ENT Exam ENT Exam: Mucous Membranes Moist - Respiratory Exam Respiratory Exam: Clear to Auscultation Bilateral, NORMAL BREATHING PATTERN. absent: Rales, Rhonchi, Wheezes, Stridor - Cardiovascular Exam Cardiovascular Exam: REGULAR RHYTHM, RRR, +S1, +S2 - GI/Abdominal Exam GI & Abdominal Exam: Normal Bowel Sounds, Soft. absent: Tenderness - Extremities Exam Extremities exam: Positive for: normal inspection. Negative for: tenderness - Neurological Exam Neurological exam: Alert, CN II-XII Intact, Oriented x3 - Expanded Neurological Exam Expanded Upper motor neuron: Pronator Drift: Normal Sensory exam: Upper Extremity Light Touch: Abnormal Right (decreased sensation on right) Neuro motor strength exam: Left Upper Extremity: 5, Right Upper Extremity: 5, Left Lower Extremity: 5, Right Lower Extremity: 5 Results - Vital Signs Recent Vital Signs: Last Vital Signs Temp Pulse 78 03/27/18 12:55 Resp 20 03/27/18 12:55 BP 127/73 03/27/18 12:55 Pulse Ox 95 03/27/18 12:55 Assessment & Plan - Assessment and Plan (Free Text) Assessment: R Arm Paresthesias f/u MRI with and without contrast Chest Pain r/o PE- f/u d dimer and CTA Seizures continue Depakote 500mg po BID seizure precautions please notify neurology for any acute changes Discussed with Dr. Angus Cabrera, PGY2 <Justin Greco - Last Filed: 03/27/18 18:51> Meds - Medications Medications: Current Medications Lorazepam (Ativan) 1 mg IVP ONCE PRN PRN Reason: Anxiety Last Admin: 03/27/18 16:55 Dose: 1 mg Results - Vital Signs Recent Vital Signs: Last Vital Signs Temp 98 F 03/27/18 12:55 Pulse 78 03/27/18 12:55 Resp 20 03/27/18 12:55 BP 127/73 03/27/18 12:55 Pulse Ox 95 03/27/18 12:55 - Labs Result Diagrams: 03/27/18 15:54 03/27/18 15:54 Labs: Laboratory Results - last 24 hr 03/27/18 03/27/18 03/27/18 14:53 15:54 15:54 WBC 4.1 L RBC 3.83 Hgb 12.1 Hct 36.3 MCV 94.8 MCH 31.6 H MCHC 33.4 RDW 12.9 Plt Count 155 MPV 9.0 Neut % (Auto) 59.2 Lymph % (Auto) 32.8 Mclennan % (Auto) 6.7 Eos % (Auto) 1.0 Baso % (Auto) 0.3 Neut # (Auto) 2.4 Lymph # (Auto) 1.4 Mclennan # (Auto) 0.3 Eos # (Auto) 0.0 Baso # (Auto) 0.0 PT 11.9 INR 1.1 APTT 41 H D-Dimer, Quantitative 247 H Sodium Potassium Chloride Carbon Dioxide Anion Gap BUN Creatinine Est GFR ( Amer) Est GFR (Non-Af Amer) Random Glucose Calcium Total Bilirubin AST ALT Alkaline Phosphatase Total Creatine Kinase CK-MB (Mass) Troponin I NT-Pro-B Natriuret Pep Total Protein Albumin Globulin Albumin/Globulin Ratio Lipase Urine Color Paloma Urine Clarity Hazy Urine pH 7.0 Ur Specific [place] 1.021 Urine Protein 2+ H Urine Glucose (UA) Normal Urine Ketones Negative Urine Blood Negative Urine Nitrate Negative Urine Bilirubin Negative Urine Urobilinogen Normal Ur Leukocyte Esterase 1+ H Urine WBC (Auto) 2 Urine RBC (Auto) 3 Ur Squamous Epith Cells 43 H Urine Bacteria Rare Hyaline Casts 6-10 H Urine HCG, Qual Negative 03/27/18 15:54 WBC RBC Hgb Hct MCV MCH MCHC RDW Plt Count MPV Neut % (Auto) Lymph % (Auto) Mclennan % (Auto) Eos % (Auto) Baso % (Auto) Neut # (Auto) Lymph # (Auto) Mclennan # (Auto) Eos # (Auto) Baso # (Auto) PT INR APTT D-Dimer, Quantitative Sodium 139 Potassium 3.8 Chloride 105 Carbon Dioxide 27 Anion Gap 11 BUN 7 Creatinine 0.7 Est GFR ( Amer) > 60 Est GFR (Non-Af Amer) > 60 Random Glucose 87 D Calcium 8.6 Total Bilirubin 0.3 AST 16 ALT 11 Alkaline Phosphatase 73 Total Creatine Kinase 36 CK-MB (Mass) < 0.22 Troponin I < 0.0120 NT-Pro-B Natriuret Pep 64.4 Total Protein 7.1 Albumin 3.9 Globulin 3.3 Albumin/Globulin Ratio 1.2 Lipase 40 Urine Color Urine Clarity Urine pH Ur Specific [place] Urine Protein Urine Glucose (UA) Urine Ketones Urine Blood Urine Nitrate Urine Bilirubin Urine Urobilinogen Ur Leukocyte Esterase Urine WBC (Auto) Urine RBC (Auto) Ur Squamous Epith Cells Urine Bacteria Hyaline Casts Urine HCG, Qual Assessment & Plan - Assessment and Plan (Free Text) Assessment: Neurology consult called by DR. Copeland in ER. 37 yr old woman with a pmh of lupus and epilepsy, presents with a several hour duration of right face and arm numbness and tingling. She says that she has a history of MS, and is admitted to rule out PE, in light of multiple old PES and also to delineate if she had a stroke. Plan; 1. MRI Brain with and without nitesh 2. COntinue depakote 500 mg bid. I examined the patient independently and formulated the assessment and plan. Dr. Greco
[2018-03-27 15:01] LABS: HCG,QUALITATIVE URINE NEGATIVE (NEGATIVE)
[2018-03-27 15:29] LABS: SQUAMOUS EPITHIAL 43 /hpf (0-5); URINE BACTERIA RARE (<OCC); URINE BILIRUBIN NEGATIVE (NEGATIVE); URINE BLOOD NEGATIVE (NEGATIVE); URINE CLARITY Hazy (Clear); URINE COLOR Amber (YELLOW); URINE GLUCOSE (UA) NORMAL (Normal); URINE LEUKOCYTE ESTERASE 1+ Leu/uL (Negative); URINE PROTEIN 2+ mg/dL (NEGATIVE); URINE UROBILINOGEN NORMAL mg/dL (0.2-1.0)
[2018-03-27 16:00] LABS: BASO % 0.3 % (0.0-2.0); HEMOGLOBIN 12.1 g/dL (11.0-16.0); LYMPH # 1.4 K/uL (1.0-4.3); LYMPH % 32.8 % (20.0-40.0); MEAN CELL VOLUME 94.8 fL (81.0-99.0); MEAN CORPUSCULAR HEMOGLOBIN 31.6 pg (27.0-31.0); MEAN CORPUSCULAR HGB CONC 33.4 g/dL (33.0-37.0); MONO # 0.3 K/uL (0.0-0.8); MONO % 6.7 % (0.0-10.0); NEUT # 2.4 K/uL (1.8-7.0); NEUT % 59.2 % (50.0-75.0); RBC 3.83 Mil/uL (3.80-5.20); RED CELL DISTRIBUTION WIDTH 12.9 % (11.5-14.5); WHITE BLOOD COUNT 4.1 K/uL (4.8-10.8)
[2018-03-27 16:09] LABS: INR 1.1; PROTHROMBIN TIME 11.9 SECONDS (9.7-12.2)
--- NOTE | 2018-03-27 16:09 | CARD ---
APPROVED REPORT Date of service: 03/27/2018 EKG Measurement Heart [id number] <Conclusion> Sinus tachycardia Otherwise normal ECG
[2018-03-27 16:15] LABS: ALB/GLOB RATIO 1.2 (1.0-2.1); ALBUMIN 3.9 g/dL (3.5-5.0); ALT/SGPT 11 U/L (9-52); AST/SGOT 16 U/L (14-36); BLOOD UREA NITROGEN 7 mg/dL (7-17); CALCIUM 8.6 mg/dl (8.6-10.4); GFR NON-AFRICAN AMERICAN > 60; LIPASE 40 U/L (23-300)
[2018-03-27 16:26] LABS: B-TYPE NATRIURETIC PEPTIDE 64.4 pg/mL (0-450)
[2018-03-27 16:38] LABS: CK-MB < 0.22 ng/mL (0.0-3.38)
[2018-03-27] MEDS ORDERED: oxyCODONE 10 mg Immediate Release Tab PO STA (16:44)
[2018-03-27] MEDS ORDERED: Iodixanol 320 MG/ML 100 ML BOTTLE IV ONE (16:47)
[2018-03-27] MEDS ORDERED: Gadodiamide 287 mg/ml 20 ml IV ONE (17:40)
[2018-03-27] MEDS ORDERED: oxyCODONE 5 mg Immediate Release Tab ONE (18:27)
--- NOTE | 2018-03-27 18:57 | CT ---
Date of service: 03/27/2018 CTA chest PE protocol Indication: dyspnea, palpitations Technique: Contiguous axial images were obtained through the chest with intravenous contrast enhancement. Sagittal and coronal reconstructions were generated and reviewed. This CT exam was performed using 1 or more of the following dose reduction techniques: Automated exposure control, adjustment of the MAA and/or kV according to patient size, and/or use of iterative reconstruction technique. IV contrast: 100 mL Visipaque 320 IV Radiation dose (DLP): 264.64 MGy-cm. Comparison: Chest x-ray performed 02/22/18 Findings: Left IJ approach central venous catheter extends to the right atrium. Visualized portions of the inferior thyroid gland appear unremarkable. The mediastinal and hilar vascular structures appear within normal limits. The heart appears within normal limits of size. No large central or segmental pulmonary embolus evident. No focal consolidation. No pleural effusion. No pneumothorax. No suspicious pulmonary nodules measuring greater than 5 mm. Limited visualized portions of the upper abdomen: Cholecystectomy clips. No acute osseous abnormality is detected. Impression: Left IJ approach central venous catheter extends the right atrium. No large central or segmental pulmonary embolus identified. No focal consolidation. Cholecystectomy clips.
[2018-03-27] MEDS ORDERED: oxyCODONE 10 mg Immediate Release Tab PO PRN (22:44)
[2018-03-27] MEDS ORDERED: oxyCODONE 5 mg Immediate Release Tab PO PRN (23:01)
[2018-03-27 23:19] LABS: CK-MB < 0.22 ng/mL (0.0-3.38)
[2018-03-28 01:25] VITALS: RESP 20
[2018-03-28 06:42] LABS: CK-MB < 0.22 ng/mL (0.0-3.38)
[2018-03-28] MEDS: oxyCODONE 5 mg Immediate Release Tab PO PRN ×2 (09:55→18:11)
[2018-03-28] MEDS ORDERED: Pantoprazole 40 mg EC Tab PO SCH ×2 (10:00)
--- NOTE | 2018-03-28 10:27 | MRI ---
Date of service: 03/27/2018 PROCEDURE: MRI BRAIN WITH AND WITHOUT CONTRAST HISTORY: R paresthesias, h/o lupus and ms COMPARISON: None available. TECHNIQUE: Multiplanar, multisequence MR images of the brain were obtained with and without intravenous contrast enhancement (Omniscan 13 cc). FINDINGS: HEMORRHAGE: None DWI: No evidence of an acute or early subacute infarction. BRAIN PARENCHYMA: Intrinsic signal throughout the pepper and white matter structures above below the tentorium appears within normal limits including the brainstem. There is no mass effect, parenchymal edema or loss of the corticomedullary differentiation. Midline brain anatomy appears within normal limits including the corpus callosum, brainstem and craniocervical junction. There is no suspicious extra-axial fluid collection identified. ENHANCEMENT: No abnormal intracranial enhancement. VENTRICLES: Unremarkable. No hydrocephalus. CRANIUM: Unremarkable. ORBITS: Grossly unremarkable. PARANASAL SINUSES/MASTOIDS: Clear VASCULAR SYSTEM: Skull base flow voids intact. OTHER FINDINGS: None . IMPRESSION: Unremarkable pre and post contrast enhanced MRI of the brain.
--- NOTE | 2018-03-28 10:43 | CP.PCM.CON ---
History of Present Illness - History of Present Illness History of Present Illness: 37 year old female with SLE recently stopped plaquanil due to leg brusing. She reporting sudden onset of chest pain. Pain is sharp and pressure like in character. Pain is located in the retrosternum. Pain is occuring at rest. Modified with opiates. Review of Systems - Review of Systems All systems: reviewed and no additional remarkable complaints except Past Patient History - Infectious Disease Hx of Infectious Diseases: None - Past Medical History & Family History Past Medical History?: Yes - Past Social History Smoking Status: Never Smoked - CARDIAC Hx Cardiac Disorders: Yes - PULMONARY Hx Respiratory Disorders: No - NEUROLOGICAL Hx Migraine: Yes Hx Multiple Sclerosis: Yes Hx Seizures: Yes - HEENT Hx HEENT Problems: No - RENAL Hx Chronic Kidney Disease: No - ENDOCRINE/METABOLIC Hx Endocrine Disorders: Yes Hx Systemic Lupus Erythematosus: Yes - HEMATOLOGICAL/ONCOLOGICAL Hx Blood Disorders: No - INTEGUMENTARY Hx Dermatological Problems: Yes Other/Comment: "Lupus rash" generalized - MUSCULOSKELETAL/RHEUMATOLOGICAL Hx Fractures: Yes (Right wrist) - GASTROINTESTINAL Hx Gastrointestinal Disorders: No - GENITOURINARY/GYNECOLOGICAL Hx Genitourinary Disorders: No - PSYCHIATRIC Hx Anxiety: Yes Hx Depression: Yes Hx Substance Use: Yes - SURGICAL HISTORY Hx Appendectomy: Yes Hx Cholecystectomy: Yes - ANESTHESIA Hx Anesthesia: Yes Hx Anesthesia Reactions: No Hx Malignant Hyperthermia: No Meds Allergies/Adverse Reactions: Allergies Allergy/AdvReac Type Severity Reaction Status Date / Time ketorolac [From Toradol] Allergy Verified 02/09/18 13:17 lamotrigine [From Lamictal] Allergy Verified 02/09/18 13:17 NSAIDS (Non-Steroidal Allergy Verified 02/09/18 13:17 Anti-Inflamma ondansetron Allergy Verified 02/09/18 13:17 [From Zofran (as hydrochloride)] Penicillins Allergy Verified 02/09/18 13:17 sumatriptan [From Imitrex] Allergy Verified 02/09/18 13:17 topiramate [From Topamax] Allergy Verified 02/09/18 13:17 tramadol Allergy Verified 02/09/18 13:17 vancomycin Allergy Verified 02/09/18 13:17 - Medications Medications: Current Medications Alprazolam (Xanax) 1 mg PO QID PRN PRN Reason: Anxiety Last Admin: 03/28/18 00:03 Dose: 1 mg Clopidogrel Bisulfate (Plavix) 75 mg PO DAILY [facility] Last Admin: 03/28/18 09:54 Dose: 75 mg Cyclobenzaprine HCl (Flexeril) 10 mg PO TID [facility] Last Admin: 03/28/18 09:54 Dose: 10 mg Gabapentin (Neurontin) 600 mg PO TID [facility] Last Admin: 03/28/18 10:23 Dose: 600 mg Gabapentin (Neurontin) 100 mg PO TID [facility] Last Admin: 03/28/18 10:22 Dose: 100 mg Influenza Virus Vaccine (Flucelvax Quad [id number] Syr) 60 mcg IM .ONCE ONE Stop: 03/29/18 14:01 Lorazepam (Ativan) 1 mg IVP ONCE PRN PRN Reason: Anxiety Last Admin: 03/27/18 16:55 Dose: 1 mg Morphine Sulfate (Morphine) 1 mg IVP Q6H PRN PRN Reason: Pain Oxycodone HCl (Oxycodone Immediate Release Tab) 15 mg PO Q8 PRN PRN Reason: Pain Last Admin: 03/28/18 09:55 Dose: 15 mg Pantoprazole Sodium (Protonix Ec Tab) 40 mg PO DAILY [facility] Last Admin: 03/28/18 09:54 Dose: 40 mg Pneumococcal Polyvalent Vaccine (Pneumovax 23 Vaccine) 0.5 ml IM .ONCE ONE Stop: 03/29/18 14:01 Physical Exam - Constitutional Appears: Well, Non-toxic - Head Exam Head Exam: ATRAUMATIC, NORMAL INSPECTION - Eye Exam Eye Exam: PERRL. absent: Scleral icterus - ENT Exam ENT Exam: Mucous Membranes Moist, Normal External Ear Exam - Neck Exam Neck exam: Positive for: Full Rom. Negative for: Thyromegaly - Respiratory Exam Respiratory Exam: Clear to Auscultation Bilateral, NORMAL BREATHING PATTERN - Cardiovascular Exam Cardiovascular Exam: REGULAR RHYTHM, RRR, +S1, +S2. absent: JVD - GI/Abdominal Exam GI & Abdominal Exam: Normal Bowel Sounds. absent: Organomegaly - Extremities Exam Extremities exam: Negative for: calf tenderness, pedal edema - Neurological Exam Neurological exam: CN II-XII Intact, Oriented x3 Results - Vital Signs Recent Vital Signs: Last Vital Signs Temp 97.4 F L 03/28/18 07:56 Pulse 90 03/28/18 09:53 Resp 20 03/28/18 07:56 BP 106/71 03/28/18 09:53 Pulse Ox 96 03/28/18 07:56 - Labs Result Diagrams: 03/27/18 15:54 03/27/18 15:54 Labs: Laboratory Results - last 24 hr 03/27/18 03/27/18 03/27/18 14:53 15:54 15:54 WBC 4.1 L RBC 3.83 Hgb 12.1 Hct 36.3 MCV 94.8 MCH 31.6 H MCHC 33.4 RDW 12.9 Plt Count 155 MPV 9.0 Neut % (Auto) 59.2 Lymph % (Auto) 32.8 [place] % (Auto) 6.7 Eos % (Auto) 1.0 Baso % (Auto) 0.3 Neut # (Auto) 2.4 Lymph # (Auto) 1.4 [place] # (Auto) 0.3 Eos # (Auto) 0.0 Baso # (Auto) 0.0 PT 11.9 INR 1.1 APTT 41 H D-Dimer, Quantitative 247 H Sodium Potassium Chloride Carbon Dioxide Anion Gap BUN Creatinine Est GFR ( Amer) Est GFR (Non-Af Amer) Random Glucose Calcium Total Bilirubin AST ALT Alkaline Phosphatase Total Creatine Kinase CK-MB (Mass) Troponin I NT-Pro-B Natriuret Pep Total Protein Albumin Globulin Albumin/Globulin Ratio Lipase Urine Color [place] Urine Clarity Hazy Urine pH 7.0 Ur Specific [place] 1.021 Urine Protein 2+ H Urine Glucose (UA) Normal Urine Ketones Negative Urine Blood Negative Urine Nitrate Negative Urine Bilirubin Negative Urine Urobilinogen Normal Ur Leukocyte Esterase 1+ H Urine WBC (Auto) 2 Urine RBC (Auto) 3 Ur Squamous Epith Cells 43 H Urine Bacteria Rare Hyaline Casts 6-10 H Urine HCG, Qual Negative 03/27/18 03/27/18 03/28/18 15:54 22:50 04:47 WBC RBC Hgb Hct MCV MCH MCHC RDW Plt Count MPV Neut % (Auto) Lymph % (Auto) [place] % (Auto) Eos % (Auto) Baso % (Auto) Neut # (Auto) Lymph # (Auto) [place] # (Auto) Eos # (Auto) Baso # (Auto) PT INR APTT D-Dimer, Quantitative Sodium 139 Potassium 3.8 Chloride 105 Carbon Dioxide 27 Anion Gap 11 BUN 7 Creatinine 0.7 Est GFR ( Amer) > 60 Est GFR (Non-Af Amer) > 60 Random Glucose 87 D Calcium 8.6 Total Bilirubin 0.3 AST 16 ALT 11 Alkaline Phosphatase 73 Total Creatine Kinase 36 36 35 CK-MB (Mass) < 0.22 < 0.22 < 0.22 Troponin I < 0.0120 < 0.0120 < 0.0120 NT-Pro-B Natriuret Pep 64.4 Total Protein 7.1 Albumin 3.9 Globulin 3.3 Albumin/Globulin Ratio 1.2 Lipase 40 Urine Color Urine Clarity Urine pH Ur Specific [place] Urine Protein Urine Glucose (UA) Urine Ketones Urine Blood Urine Nitrate Urine Bilirubin Urine Urobilinogen Ur Leukocyte Esterase Urine WBC (Auto) Urine RBC (Auto) Ur Squamous Epith Cells Urine Bacteria Hyaline Casts Urine HCG, Qual - EKG Data EKG Interpreted by: Myself - Imaging and Cardiology CT scan - chest Status: Image reviewed by me Additional comment: No PE no infiltrates or effusions Assessment & Plan - Assessment and Plan (Free Text) Assessment: 37 year old female with chest pain I ordered serial trop which is negative for NSTEMI. EKG i ordered is negative for ischemia SLE she is off plaquanil due to bruising, contact rheum and discuss disease modification, send JULIANE, ESR, CRP, compliment level. Fibromyalgia chronic and poorly controlled on neurontin
--- NOTE | 2018-03-28 11:12 | CP.PCM.HP ---
History of Present Illness - History of Present Illness History of Present Illness: PT CAME TO ED FOR CHEST PAIN PRESSURE KIND AND SOB SHARP OCASIONALY WITH MOVEMENTS Present on Admission - Present on Admission Any Indicators Present on Admission: No Review of Systems - Review of Systems Systems not reviewed;Unavailable: Acuity of Condition - Constitutional Constitutional: Fatigue - EENT Eyes: As Per HPI Ears: As Per HPI Nose/Mouth/Throat: As Per HPI - Breasts Breasts: As Per HPI - Cardiovascular Cardiovascular: Chest Pain, Chest Pain with Activity, Dyspnea - Respiratory Respiratory: Dyspnea - Gastrointestinal Gastrointestinal: As Per HPI - Genitourinary Genitourinary: As Per HPI - Reproductive: Female Reproductive:Female: As Per HPI - Menstruation Menstruation: As Per HPI - Musculoskeletal Musculoskeletal: As Per HPI - Integumentary Integumentary: As Per HPI - Neurological Additional comments: MNESS ARM - Psychiatric Psychiatric: As Per HPI - Endocrine Endocrine: As Per HPI - Hematologic/Lymphatic Hematologic: As Per HPI Past Patient History - Infectious Disease Hx of Infectious Diseases: None - Past Medical History & Family History Past Medical History?: Yes - Past Social History Smoking Status: Never Smoked - CARDIAC Hx Cardiac Disorders: Yes - PULMONARY Hx Respiratory Disorders: No - NEUROLOGICAL Hx Migraine: Yes Hx Multiple Sclerosis: Yes Hx Seizures: Yes - HEENT Hx HEENT Problems: No - RENAL Hx Chronic Kidney Disease: No - ENDOCRINE/METABOLIC Hx Endocrine Disorders: Yes Hx Systemic Lupus Erythematosus: Yes - HEMATOLOGICAL/ONCOLOGICAL Hx Blood Disorders: No - INTEGUMENTARY Hx Dermatological Problems: Yes Other/Comment: "Lupus rash" generalized - MUSCULOSKELETAL/RHEUMATOLOGICAL Hx Fractures: Yes (Right wrist) - GASTROINTESTINAL Hx Gastrointestinal Disorders: No - GENITOURINARY/GYNECOLOGICAL Hx Genitourinary Disorders: No - PSYCHIATRIC Hx Anxiety: Yes Hx Depression: Yes Hx Substance Use: Yes - SURGICAL HISTORY Hx Appendectomy: Yes Hx Cholecystectomy: Yes - ANESTHESIA Hx Anesthesia: Yes Hx Anesthesia Reactions: No Hx Malignant Hyperthermia: No Meds Allergies/Adverse Reactions: Allergies Allergy/AdvReac Type Severity Reaction Status Date / Time ketorolac [From Toradol] Allergy Verified 02/09/18 13:17 lamotrigine [From Lamictal] Allergy Verified 02/09/18 13:17 NSAIDS (Non-Steroidal Allergy Verified 02/09/18 13:17 Anti-Inflamma ondansetron Allergy Verified 02/09/18 13:17 [From Zofran (as hydrochloride)] Penicillins Allergy Verified 02/09/18 13:17 sumatriptan [From Imitrex] Allergy Verified 02/09/18 13:17 topiramate [From Topamax] Allergy Verified 02/09/18 13:17 tramadol Allergy Verified 02/09/18 13:17 vancomycin Allergy Verified 02/09/18 13:17 Physical Exam - Constitutional Appears: No Acute Distress - Head Exam Head Exam: ATRAUMATIC - Eye Exam Eye Exam: Normal appearance Pupil Exam: NORMAL ACCOMODATION - ENT Exam ENT Exam: Mucous Membranes Moist - Neck Exam Neck exam: Positive for: Full Rom - Respiratory Exam Respiratory Exam: Clear to Auscultation Bilateral - Cardiovascular Exam Cardiovascular Exam: REGULAR RHYTHM - GI/Abdominal Exam GI & Abdominal Exam: Normal Bowel Sounds - Extremities Exam Extremities exam: Positive for: normal inspection - Back Exam Back exam: NORMAL INSPECTION - Neurological Exam Neurological exam: Alert, Normal Gait, Oriented x3 - Psychiatric Exam Psychiatric exam: Normal Affect - Skin Skin Exam: Normal Color Results - Vital Signs Recent Vital Signs: Last Vital Signs Temp 97.4 F L 03/28/18 07:56 Pulse 90 03/28/18 09:53 Resp 20 03/28/18 07:56 BP 106/71 03/28/18 09:53 Pulse Ox 96 03/28/18 07:56 - Labs Result Diagrams: 03/27/18 15:54 03/27/18 15:54 Labs: Laboratory Results - last 24 hr 03/27/18 03/27/18 03/27/18 14:53 15:54 15:54 WBC 4.1 L RBC 3.83 Hgb 12.1 Hct 36.3 MCV 94.8 MCH 31.6 H MCHC 33.4 RDW 12.9 Plt Count 155 MPV 9.0 Neut % (Auto) 59.2 Lymph % (Auto) 32.8 [place] % (Auto) 6.7 Eos % (Auto) 1.0 Baso % (Auto) 0.3 Neut # (Auto) 2.4 Lymph # (Auto) 1.4 [place] # (Auto) 0.3 Eos # (Auto) 0.0 Baso # (Auto) 0.0 PT 11.9 INR 1.1 APTT 41 H D-Dimer, Quantitative 247 H Sodium Potassium Chloride Carbon Dioxide Anion Gap BUN Creatinine Est GFR ( Amer) Est GFR (Non-Af Amer) Random Glucose Calcium Total Bilirubin AST ALT Alkaline Phosphatase Total Creatine Kinase CK-MB (Mass) Troponin I NT-Pro-B Natriuret Pep Total Protein Albumin Globulin Albumin/Globulin Ratio Lipase Urine Color [place] Urine Clarity Hazy Urine pH 7.0 Ur Specific [place] 1.021 Urine Protein 2+ H Urine Glucose (UA) Normal Urine Ketones Negative Urine Blood Negative Urine Nitrate Negative Urine Bilirubin Negative Urine Urobilinogen Normal Ur Leukocyte Esterase 1+ H Urine WBC (Auto) 2 Urine RBC (Auto) 3 Ur Squamous Epith Cells 43 H Urine Bacteria Rare Hyaline Casts 6-10 H Urine HCG, Qual Negative 03/27/18 03/27/18 03/28/18 15:54 22:50 04:47 WBC RBC Hgb Hct MCV MCH MCHC RDW Plt Count MPV Neut % (Auto) Lymph % (Auto) [place] % (Auto) Eos % (Auto) Baso % (Auto) Neut # (Auto) Lymph # (Auto) [place] # (Auto) Eos # (Auto) Baso # (Auto) PT INR APTT D-Dimer, Quantitative Sodium 139 Potassium 3.8 Chloride 105 Carbon Dioxide 27 Anion Gap 11 BUN 7 Creatinine 0.7 Est GFR ( Amer) > 60 Est GFR (Non-Af Amer) > 60 Random Glucose 87 D Calcium 8.6 Total Bilirubin 0.3 AST 16 ALT 11 Alkaline Phosphatase 73 Total Creatine Kinase 36 36 35 CK-MB (Mass) < 0.22 < 0.22 < 0.22 Troponin I < 0.0120 < 0.0120 < 0.0120 NT-Pro-B Natriuret Pep 64.4 Total Protein 7.1 Albumin 3.9 Globulin 3.3 Albumin/Globulin Ratio 1.2 Lipase 40 Urine Color Urine Clarity Urine pH Ur Specific [place] Urine Protein Urine Glucose (UA) Urine Ketones Urine Blood Urine Nitrate Urine Bilirubin Urine Urobilinogen Ur Leukocyte Esterase Urine WBC (Auto) Urine RBC (Auto) Ur Squamous Epith Cells Urine Bacteria Hyaline Casts Urine HCG, Qual Assessment & Plan - Assessment and Plan (Free Text) Assessment: AC CHEST PAIN NON CARDIAC FIBROMYALGIA LUPUS Plan: PER ORDERS - Date & Time Date: 03/28/18 Time: 11:15
--- NOTE | 2018-03-28 12:21 | CP.PCM.PN ---
Subjective - Date & Time of Evaluation Date of Evaluation: 03/28/18 Time of Evaluation: 12:15 - Subjective Subjective: MIss reeves continues to have chest pain, is now not experiencing numbness and tingling of face or arm. No headache, no nausea, no vomiting, no diarrhea, no weakness, no aphasia. ROS; as above. ON exam: Normal neurological examination. AAOX3. PERRL. Cn 2-12 normal. EOMI MMS: 30/30. VFF. motor: 5/5 ul and ll bl. Sensory: intact, ft, pin, Gait: normal. +2 dtr ul and ll bl. Toes downgoing no clonus. Objective - Vital Signs/Intake and Output Vital Signs (last 24 hours): Temp Pulse Resp BP Pulse Ox 97.4 F L 90 20 106/71 96 03/28/18 07:56 03/28/18 09:53 03/28/18 07:56 03/28/18 09:53 03/28/18 07:56 Intake and Output: 03/28/18 03/28/18 06:59 18:59 Intake Total 50 Balance 50 - Medications Medications: Current Medications Alprazolam (Xanax) 1 mg PO QID PRN PRN Reason: Anxiety Last Admin: 03/28/18 00:03 Dose: 1 mg Clopidogrel Bisulfate (Plavix) 75 mg PO DAILY [facility] Last Admin: 03/28/18 09:54 Dose: 75 mg Cyclobenzaprine HCl (Flexeril) 10 mg PO TID [facility] Last Admin: 03/28/18 09:54 Dose: 10 mg Gabapentin (Neurontin) 600 mg PO TID [facility] Last Admin: 03/28/18 10:23 Dose: 600 mg Gabapentin (Neurontin) 100 mg PO TID [facility] Last Admin: 03/28/18 10:22 Dose: 100 mg Influenza Virus Vaccine (Flucelvax Quad [id number] Syr) 60 mcg IM .ONCE ONE Stop: 03/29/18 14:01 Lorazepam (Ativan) 1 mg IVP ONCE PRN PRN Reason: Anxiety Last Admin: 03/27/18 16:55 Dose: 1 mg Morphine Sulfate (Morphine) 1 mg IVP Q6H PRN PRN Reason: Pain Oxycodone HCl (Oxycodone Immediate Release Tab) 15 mg PO Q8 PRN PRN Reason: Pain Last Admin: 03/28/18 09:55 Dose: 15 mg Pantoprazole Sodium (Protonix Ec Tab) 40 mg PO DAILY [facility] Last Admin: 03/28/18 09:54 Dose: 40 mg Pneumococcal Polyvalent Vaccine (Pneumovax 23 Vaccine) 0.5 ml IM .ONCE ONE Stop: 03/29/18 14:01 - Labs Labs: 03/27/18 15:54 03/27/18 15:54 PT 11.9 SECONDS (9.7-12.2) 03/27/18 15:54 INR 1.1 03/27/18 15:54 APTT 41 SECONDS (21-34) H 03/27/18 15:54 Assessment and Plan - Assessment and Plan (Free Text) Assessment: MRI/BRain: normal, no enhancement with gadolinium. MRI C spine and thoracic spine : done by Dr. Hsu but results not known. A/P: 37 yr old woman with MS that was diagnosed by her bun panner, and now being ruled out for PE. MRI Brain with nitesh does not corroborate MS, so we will need other imaging studies to clarify. She is now ruled out for stroke, and i do not believe she had a TIA. PLan; 1. Obtain studies 2. COntinue to rule out for PE. Dr. Greco
[2018-03-29 08:09] VITALS: BP 98/60; PULSE 63; TEMP 97.8; O2SAT 99
--- NOTE | 2018-03-29 10:17 | CP.PCM.PN ---
Subjective - Date & Time of Evaluation Date of Evaluation: 03/29/18 Time of Evaluation: 10:10 - Subjective Subjective: Patient seen today states feels better denies any chest pain, sob, headache, dizziness No overnight events reported by RN vss ad labs reviewed - troponin x 3 negative Objective - Vital Signs/Intake and Output Vital Signs (last 24 hours): Temp Pulse Resp BP Pulse Ox 97.8 F 63 20 98/60 L 99 03/29/18 07:40 03/29/18 07:40 03/29/18 07:40 03/29/18 07:40 03/29/18 07:40 - Medications Medications: Current Medications Alprazolam (Xanax) 1 mg PO QID PRN PRN Reason: Anxiety Last Admin: 03/29/18 00:02 Dose: 1 mg Clopidogrel Bisulfate (Plavix) 75 mg PO DAILY [facility] Last Admin: 03/28/18 09:54 Dose: 75 mg Cyclobenzaprine HCl (Flexeril) 10 mg PO TID [facility] Last Admin: 03/28/18 18:15 Dose: 10 mg Famotidine (Pepcid) 20 mg PO BID [facility] Gabapentin (Neurontin) 600 mg PO TID [facility] Last Admin: 03/28/18 18:12 Dose: 600 mg Gabapentin (Neurontin) 100 mg PO TID [facility] Last Admin: 03/28/18 18:13 Dose: 100 mg Heparin Sodium (Porcine) (Heparin Lock Flush) 300 units IVF ONCE ONE Stop: 03/29/18 10:15 Influenza Virus Vaccine (Flucelvax Quad [id number] Syr) 60 mcg IM .ONCE ONE Stop: 03/29/18 14:01 Lorazepam (Ativan) 1 mg IVP ONCE PRN PRN Reason: Anxiety Last Admin: 03/27/18 16:55 Dose: 1 mg Morphine Sulfate (Morphine) 1 mg IVP Q6H PRN PRN Reason: Pain Last Admin: 03/29/18 08:13 Dose: 1 mg Oxycodone HCl (Oxycodone Immediate Release Tab) 15 mg PO Q8 PRN PRN Reason: Pain Last Admin: 03/28/18 18:11 Dose: 15 mg Pneumococcal Polyvalent Vaccine (Pneumovax 23 Vaccine) 0.5 ml IM .ONCE ONE Stop: 03/29/18 14:01 - Labs Labs: 03/27/18 15:54 03/27/18 15:54 PT 11.9 SECONDS (9.7-12.2) 03/27/18 15:54 INR 1.1 03/27/18 15:54 APTT 41 SECONDS (21-34) H 03/27/18 15:54 Assessment and Plan - Assessment and Plan (Free Text) Assessment: A/P 37 y/o F c PMHx Lupus, PEs, pericarditis admitted with dyspnea, palpitations, and midsternal chest pain radiating to bilateral chest x 2 days troponin x 3- negative EKG- negative for ischemia CT chest - negative for PE (No large central or segmental pulmonary embolus identified). Dr. Andrea consulted for c/o numbness and tinglings - all work up negative seen by Dr. Andrea today, cleared for discharge home today from [facility] D/w Dr. Grossman, cleared for discharge home today and f/u with PMD and rhumatologist Discharge plan discussed with patient who understands and agrees with plan patient instructed to returns to ED if symptoms returns
[2018-03-29] MEDS: oxyCODONE 5 mg Immediate Release Tab PO PRN (10:58)
[2018-03-29] MEDS ORDERED: Pneumococcal 23-Valent Vaccine IM ONE (12:00)
[2018-03-29] MEDS ORDERED: Influenza Vaccine 60 mcg/0.5 mL SYR (4YR UP) IM ONE (12:30)
== END 2018-03-29 12:47 | disposition home or self-care (01) ==
LOC: C.ER 12:52 → C.9E 21:50 → C.6T 22:20
PROVIDERS: ADMIT Internal Medicine; ATTEND Internal Medicine
DX: R07.89 Other chest pain (principal); F17.210 Nicotine dependence, cigarettes, uncomplicated; G35 Multiple sclerosis; G40.909 Epilepsy, unspecified, not intractable, without status epilepticus; M32.9 Systemic lupus erythematosus, unspecified; M79.7 Fibromyalgia; Z96.643 Presence of artificial hip joint, bilateral; Z86.711 Personal history of pulmonary embolism
CPT/HCPCS: 36415; 70553; 71275; 80053; 81001; 82550; 82553; 83690; 83880; 84484; 84703; 85025; 85378; 85610; 85730; 87086; 90674; 90732; 93005; 96374; 99285; A9579; G0008; G0009; G0378; J1642; J2060; J2270; Q9967

== ENCOUNTER 2018-05-03 08:56 | Emergency (ER) | payer MEDICARE, MEDICAID ==
[2018-05-03 08:57] VITALS: BMI 24.7
[2018-05-03 09:17] VITALS: O2SAT 100
[2018-05-03] MEDS ORDERED: Sodium Chloride 0.9% 1,000 ML IV ONE (09:34)
[2018-05-03] MEDS ORDERED: Divalproex 500 mg DR Tab PO ONE (09:46)
--- NOTE | 2018-05-03 10:06 | C.PDOC ---
History Of Present Illness 37 y/o femal,w/PMhx of seizure disorder, fibromyalgia, MS, and lupus, presents to the ER for evaluation of syncopal episode which occurred earlier today. 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 Patient reports that she began having chest pain. Then, she started walking towards the hospital and she "passed out." Patient currently denies having headache, dizziness, CP,SOB, nausea, and vomiting. Time Seen by Provider: 05/03/18 09:17 Chief Complaint (Nursing): Syncope History Per: Patient History/Exam Limitations: no limitations Onset/Duration Of Symptoms: Hrs Current Symptoms Are (Timing): Gone Severity: Moderate Past Medical History Reviewed: Historical Data, Nursing Documentation, Vital Signs Vital Signs: Last Vital Signs Temp 97.4 F L 05/03/18 09:07 Pulse 130 H 05/03/18 09:07 Resp 22 05/03/18 09:07 BP 123/84 05/03/18 09:07 Pulse Ox 100 05/03/18 09:07 - Medical History PMH: Anxiety, Depression, Fibromyalgia, Fractures (Right wrist), Migraine, Mult iple Sclerosis, Pericarditis, Seizures Denies: Chronic Kidney Disease Surgical History: Appendectomy, Cholecystectomy - [facility] Procedures INJECT/INFUSE NEC (09/06/12) VACCINATION NEC (08/11/12) Family History: States: No Known Family Hx - Social History Hx Alcohol Use: No Hx Substance Use: Yes - Immunization History Hx Tetanus Toxoid Vaccination: No Hx Influenza Vaccination: Yes Hx Pneumococcal Vaccination: Yes Review Of Systems Except As Marked, All Systems Reviewed And Found Negative. Constitutional: Negative for: Fever, Chills Cardiovascular: Positive for: Chest Pain (currently resolved) Respiratory: Negative for: Shortness of Breath Gastrointestinal: Negative for: Nausea, Vomiting, Abdominal Pain Neurological: Positive for: Other (syncopal episode) Physical Exam - Physical Exam Appears: Non-toxic, No Acute Distress Skin: Normal Color, Warm, Dry Head: Atraumatic, Normacephalic Eye(s): bilateral: Normal Inspection Nose: Normal Oral Mucosa: Moist Neck: Supple Chest: Symmetrical Cardiovascular: Rhythm Regular (with tachycardia) Respiratory: Normal Breath Sounds, No Rales, No Rhonchi, No Wheezing Gastrointestinal/Abdominal: Normal Exam, Soft, No Tenderness, No Guarding, No Rebound Neurological/Psych: Oriented x3, Normal Speech ED Course And Treatment - Laboratory Results Result Diagrams: 05/03/18 10:07 05/03/18 10:07 Lab Interpretation: Normal Urine POC: Negative ECG: Interpreted By Me ECG Rhythm: Sinus Tachycardia ECG Interpretation: No Acute Changes Rate From EC O2 Sat by Pulse Oximetry: 100 (RA) Pulse Ox Interpretation: Normal - CT Scan/US CT-Chest Other Rad Studies (CT/US): Read By Radiologist, Radiology Report Reviewed CT/US Interpretation: Date of service: 05/03/2018. PROCEDURE: CT Chest with contrast (Pulmonary Angiogram). HISTORY: syncope. COMPARISON: Comparison is made to the previous study dated 03/27/2018. TECHNIQUE: Axial computed tomography images were obtained of the chest in the pulmonary arterial phase of enhancement. Coronal and sagittal reformatted images were created and reviewed. Intravenous contrast dose: 100 mL of Visipaque 320 intravenously. Radiation dose: Total exam DLP = 335.39 mGy-cm. This CT exam was performed using one or more of the following dose reduction techniques: Automated exposure control, adjustment of the mA and/or kV according to patient size, and/or use of iterative reconstruction technique. FINDINGS: PULMONARY ARTERIES: No evidence of filling defect in the pulmonary arteries up to segmental branches suggest pulmonary embolus. AORTA: No acute findings. No thoracic aortic aneurysm. No aortic atherosclerotic calcification or mural plaque present. LUNGS: No evidence of consolidation. There is nonspecific hazy central nodular and tree-in-bud opacities more prominent at the posterior and lower portion of the lungs. Correlate clinically for possible infectious process. PLEURAL SPACES: Unremarkable. No effusion or pneumothorax. HEART: Unremarkable. No cardiomegaly. No significant pericardial effusion. LYMPH NODES: Mildly enlarged axillary right more than left and mediastinal lymph nodes are noted. BONES, CHEST WALL: Unremarkable. No fracture or destructive lesion. OTHER FINDINGS: Unremarkable. IMPRESSION: No evidence of pulmonary embolus. Nonspecific small nodular opacities in the posterior portion of the lungs may represent infectious process or less likely aspiration. Please correlate clinically. Otherwise no significant interval changes. Progress Note: Patient treated with IVF NSS. On re-evaluation feeling better. Lungs clear, discharged in stable condition, ambulating with steady gait Reassessment Condition: Improved Medical Decision Making Medical Decision Making: Plan: --Labs --UA --IV Fluids --Depakote PO Disposition - Disposition Referrals: [facility] [Outside] [facility] [Outside] Disposition: HOME/ ROUTINE Disposition Time: 14:00 Condition: IMPROVED Additional Instructions: Follow up with PMD for further evaluation Return to ED if any increase symptoms Take medication as directed Prescriptions: Divalproex [Depakote DR (*BID*)] 500 mg PO BID #14 ect Instructions: Vasovagal Response Forms: [employer] (Faroese) - POA Present On Arrival: None - Clinical Impression Clinical Impression: Vasovagal syncope, Chest pain - PA / COMMERCIAL CREDIT ANALYST / Resident Statement MD/DO has reviewed & agrees with the documentation as recorded. - Scribe Statement The provider has reviewed the documentation as recorded by the Boogie Pennington Provider Attestation All medical record entries made by the Scribe were at my direction and personally dictated by me. I have reviewed the chart and agree that the record accurately reflects my personal performance of the history, physical exam, medical decision making, and the department course for this patient. I have also personally directed, reviewed, and agree with the discharge instructions and disposition.
[2018-05-03 10:13] LABS: BASO % 0.2 % (0.0-2.0); EOS % 0.9 % (0.0-4.0); HEMOGLOBIN 11.9 g/dL (11.0-16.0); LYMPH # 0.8 K/uL (1.0-4.3); LYMPH % 16.9 % (20.0-40.0); MEAN CELL VOLUME 94.2 fL (81.0-99.0); MONO # 0.3 K/uL (0.0-0.8); MONO % 6.2 % (0.0-10.0); NEUT # 3.7 K/uL (1.8-7.0); NEUT % 75.8 % (50.0-75.0); RBC 3.73 Mil/uL (3.80-5.20); RED CELL DISTRIBUTION WIDTH 12.9 % (11.5-14.5); WHITE BLOOD COUNT 4.8 K/uL (4.8-10.8)
[2018-05-03 10:16] LABS: HCG,QUALITATIVE URINE NEGATIVE (NEGATIVE)
[2018-05-03 10:18] LABS: SQUAMOUS EPITHIAL 44 /hpf (0-5); URINE BACTERIA RARE (<OCC); URINE BILIRUBIN NEGATIVE (NEGATIVE); URINE BLOOD NEGATIVE (NEGATIVE); URINE CLARITY Hazy (Clear); URINE COLOR Yellow (YELLOW); URINE GLUCOSE (UA) NORMAL (Normal); URINE HYALINE CAST 0-2 /lpf (0-2); URINE LEUKOCYTE ESTERASE NEG Leu/uL (Negative); URINE PROTEIN 1+ mg/dL (NEGATIVE); URINE UROBILINOGEN NORMAL mg/dL (0.2-1.0)
[2018-05-03 10:25] LABS: ALB/GLOB RATIO 1.2 (1.0-2.1); ALBUMIN 3.7 g/dL (3.5-5.0); ALT/SGPT 9 U/L (9-52); AST/SGOT 15 U/L (14-36); BLOOD UREA NITROGEN 11 mg/dL (7-17); CALCIUM 8.7 mg/dl (8.6-10.4); GFR NON-AFRICAN AMERICAN > 60
[2018-05-03] MEDS ORDERED: Iodixanol 320 MG/ML 100 ML BOTTLE IV ONE (11:10)
--- NOTE | 2018-05-03 12:00 | CT ---
Date of service: 05/03/2018 PROCEDURE: CT Chest with contrast (Pulmonary Angiogram) HISTORY: syncope COMPARISON: Comparison is made to the previous study dated 03/27/2018 TECHNIQUE: Axial computed tomography images were obtained of the chest in the pulmonary arterial phase of enhancement. Coronal and sagittal reformatted images were created and reviewed. Intravenous contrast dose: 100 mL of Visipaque 320 intravenously Radiation dose: Total exam DLP = 335.39 mGy-cm. This CT exam was performed using one or more of the following dose reduction techniques: Automated exposure control, adjustment of the mA and/or kV according to patient size, and/or use of iterative reconstruction technique. FINDINGS: PULMONARY ARTERIES: No evidence of filling defect in the pulmonary arteries up to segmental branches suggest pulmonary embolus. AORTA: No acute findings. No thoracic aortic aneurysm. No aortic atherosclerotic calcification or mural plaque present. LUNGS: No evidence of consolidation. There is nonspecific hazy central nodular and tree-in-bud opacities more prominent at the posterior and lower portion of the lungs. Correlate clinically for possible infectious process. PLEURAL SPACES: Unremarkable. No effusion or pneumothorax. HEART: Unremarkable. No cardiomegaly. No significant pericardial effusion. LYMPH NODES: Mildly enlarged axillary right more than left and mediastinal lymph nodes are noted. BONES, CHEST WALL: Unremarkable. No fracture or destructive lesion OTHER FINDINGS: Unremarkable. IMPRESSION: No evidence of pulmonary embolus. Nonspecific small nodular opacities in the posterior portion of the lungs may represent infectious process or less likely aspiration. Please correlate clinically. Otherwise no significant interval changes.
[2018-05-03 12:44] VITALS: BP 126/74; PULSE 98; RESP 20; TEMP 98.4
--- NOTE | 2018-05-07 22:00 | CARD ---
APPROVED REPORT Date of service: 05/03/2018 EKG Measurement Heart [id number] <Conclusion> Sinus tachycardia Otherwise normal ECG
== END 2018-05-03 12:56 | disposition home or self-care (01) ==
LOC: C.ER 08:56
DX: R55 Syncope and collapse (principal); R07.9 Chest pain, unspecified
CPT/HCPCS: 71275; 80053; 81001; 82948; 84484; 84703; 85025; 85378; 93005; 96360; 99285; J7030; Q9967

== ENCOUNTER 2018-05-21 19:29 | Emergency (ER) | payer MEDICARE, MEDICAID ==
[2018-05-21 19:30] VITALS: BMI 24.7
--- NOTE | 2018-05-21 20:08 | C.PDOC ---
History Of Present Illness 37 year old female presents to the ED c/o anterior chest wall pain that started tonight. Patient reports similar symptoms in the past. Patient denies fever, chills, headache, rash, SOB, palpitations, rash, weakness, numbness. Chief Complaint (Nursing): Chest Pain History Per: Patient History/Exam Limitations: no limitations Onset/Duration Of Symptoms: Sudden Onset Current Symptoms Are (Timing): Still Present Quality: "Pain" Recent travel outside of the [place]: No Additional History Per: Patient Past Medical History Reviewed: Historical Data, Nursing Documentation, Vital Signs - Medical History PMH: Anxiety, Depression, Fibromyalgia, Fractures (Right wrist), Migraine, Multiple Sclerosis, Pericarditis, Seizures Denies: Chronic Kidney Disease Surgical History: Appendectomy, Cholecystectomy - [facility] Procedures INJECT/INFUSE NEC (09/06/12) VACCINATION NEC (08/11/12) Family History: States: Unknown Family Hx - Social History Hx Alcohol Use: No Hx Substance Use: Yes - Immunization History Hx Tetanus Toxoid Vaccination: No Hx Influenza Vaccination: Yes Hx Pneumococcal Vaccination: No Review Of Systems Constitutional: Negative for: Fever, Chills Cardiovascular: Positive for: Chest Pain. Negative for: Palpitations Respiratory: Negative for: Shortness of Breath Gastrointestinal: Negative for: Nausea, Vomiting, Abdominal Pain Skin: Negative for: Rash Neurological: Negative for: Weakness, Numbness, Headache Physical Exam - Physical Exam Appears: Non-toxic, No Acute Distress Skin: Normal Color, Warm, Dry Head: Atraumatic, Normacephalic Eye(s): bilateral: Normal Inspection Neck: Normal ROM, Supple Chest: Symmetrical, No Tenderness Cardiovascular: Rhythm Regular Respiratory: Normal Breath Sounds, No Rales, No Rhonchi, No Wheezing Gastrointestinal/Abdominal: Soft, No Tenderness, No Guarding, No Rebound Extremity: Normal ROM, No Tenderness, No Swelling Neurological/Psych: Oriented x3, Normal Speech, Normal Cognition Gait: Steady ED Course And Treatment - Laboratory Results Result Diagrams: 05/21/18 20:46 05/21/18 20:46 ECG: Interpreted By Me, Viewed By Me ECG Rhythm: Sinus Rhythm ECG Interpretation: Normal, No Acute Changes Interpretation Of ECG: NSR, normal tracings. Rate From EC Pulse Ox Interpretation: Normal - Radiology CXR: Interpreted by Me, Viewed By Me CXR Interpretation: Yes: No Acute Disease. No: Infiltrates Disposition Counseled Patient/Family Regarding: Diagnosis - Disposition Referrals: [facility] [Outside] Disposition: HOME/ ROUTINE Disposition Time: 23:18 Condition: STABLE Prescriptions: Acetaminophen [Tylenol 325mg tab] 659 mg PO Q4 #30 tab Nitrofurantoin Macrocrystals [Macrobid] 1 cap PO BID #14 cap Instructions: Chest Pain, Urinary Tract Infections in Adults Forms: [facility] (Italian) - POA Present On Arrival: None - Clinical Impression Clinical Impression: Chest pain, UTI (urinary tract infection) - Scribe Statement The provider has reviewed the documentation as recorded by the Scribe Patrick Vieira All medical record entries made by the Scribe were at my direction and personally dictated by me. I have reviewed the chart and agree that the record accurately reflects my personal performance of the history, physical exam, medical decision making, and the department course for this patient. I have also personally directed, reviewed, and agree with the discharge instructions and disposition.
[2018-05-21 20:50] LABS: BASO % 0.3 % (0.0-2.0); EOS % 0.5 % (0.0-4.0); HEMOGLOBIN 11.9 g/dL (11.0-16.0); LYMPH # 1.3 K/uL (1.0-4.3); LYMPH % 25.6 % (20.0-40.0); MEAN CELL VOLUME 93.9 fL (81.0-99.0); MEAN CORPUSCULAR HEMOGLOBIN 31.4 pg (27.0-31.0); MEAN CORPUSCULAR HGB CONC 33.5 g/dL (33.0-37.0); MEAN PLATELET VOLUME 7.9 fL (7.2-11.7); MONO # 0.4 K/uL (0.0-0.8); MONO % 7.4 % (0.0-10.0); NEUT # 3.3 K/uL (1.8-7.0); NEUT % 66.2 % (50.0-75.0); NRBC % 0.1 % (0.0-2.0); RBC 3.8 Mil/uL (3.80-5.20); RED CELL DISTRIBUTION WIDTH 13.3 % (11.5-14.5); WHITE BLOOD COUNT 4.9 K/uL (4.8-10.8)
[2018-05-21 21:05] LABS: ALB/GLOB RATIO 1.2 (1.0-2.1); ALBUMIN 3.7 g/dL (3.5-5.0); ALT/SGPT < 6 U/L (9-52); AST/SGOT 13 U/L (14-36); BLOOD UREA NITROGEN 12 mg/dL (7-17); CALCIUM 8.5 mg/dl (8.6-10.4); GFR NON-AFRICAN AMERICAN > 60
[2018-05-21 21:21] LABS: SQUAMOUS EPITHIAL 20 /hpf (0-5); URINE BACTERIA RARE (<OCC)
[2018-05-21 21:36] LABS: PH,URINE 6.5 (5.0-8.0); URINE BILIRUBIN NEGATIVE (NEGATIVE); URINE BLOOD TRACE (NEGATIVE); URINE CLARITY CLEAR (Clear); URINE COLOR YELLOW (YELLOW); URINE GLUCOSE (UA) NEGATIVE (Normal); URINE PROTEIN NEGATIVE (NEGATIVE); URINE UROBILINOGEN 0.2 mg/dL (0.2-1.0)
[2018-05-21 21:37] LABS: URINE LEUKOCYTE ESTERASE MODERATE Leu/uL (Negative)
[2018-05-21 22:32] VITALS: RESP 16; O2SAT 100
[2018-05-21 23:40] VITALS: BP 121/77; PULSE 91; TEMP 98.7
--- NOTE | 2018-05-22 09:07 | RAD ---
Chest x-ray two views HISTORY: Chest pain. COMPARISON: 02/22/2018 FINDINGS: Left chest wall port with tip extending to the cavoatrial junction. Bibasilar breast and nipple shadows. Surgical clips in the left axilla. Punctate granuloma at the right lung apex. Sclerosis concerning for AVN at the right humeral head. No gross focal infiltrate or effusion. Impression: No focal infiltrate or effusion.
--- NOTE | 2018-05-23 20:47 | CARD ---
APPROVED REPORT Date of service: 05/21/2018 EKG Measurement Heart [id number] <Conclusion> Normal sinus rhythm Normal ECG
== END 2018-05-21 23:45 | disposition home or self-care (01) ==
LOC: C.ER 19:29
DX: R07.9 Chest pain, unspecified (principal); N39.0 Urinary tract infection, site not specified